=== PATIENT | female | born 1945 | race Caucasian/White ===

== ENCOUNTER 2017-02-13 06:28 | Day surgery (SDC) | payer MEDICARE ==
[~2017-02-13 06:28] MED LIST: LACTATED RINGERS 1,000 ML IV SCH
[2017-02-13 07:17] VITALS: TEMP 97.5
[2017-02-13 07:22] LABS: Glucose,Whole Blood 127 mg/dL (75-99)
[2017-02-13] MEDS ORDERED: LACTATED RINGERS 1,000 ML IV ONE (07:23)
[2017-02-13] MEDS ORDERED: PROPOFOL 10 MG/ML 20 ML VIAL IV ONE (07:29)
--- NOTE | 2017-02-13 07:57 | P.PCN ---
Date of Procedure: 02/13/17 Preoperative Diagnosis: Postoperative Diagnosis: Procedure(s) Performed: BRIEF HISTORY: Patient is a 71-year-old pleasant white female, scheduled for an elective colonoscopy as a part of screening for colorectal neoplasia. PROCEDURE PERFORMED: Colonoscopy. PREOPERATIVE DIAGNOSIS: Screening for colon cancer. IV sedation per Anesthesia. PROCEDURE: After informed consent was obtained, the patient, was brought into the endoscopy unit. IV sedation was administered by Anesthesia under continuous monitoring. Digital rectal examination was normal. Initially the Olympus CF- 160 flexible video colonoscope was then inserted in the rectum, gradually advanced into the cecum without any difficulty. Careful examination was performed as the scope was gradually being withdrawn. Ileocecal valve and the appendiceal orifice were visualized and appeared normal. Prep was excellent. Mucosa of the cecum, ascending colon, transverse colon, descending colon, sigmoid colon, and rectum appeared normal. Retroflexion was performed in the rectum and no lesions were seen. The patient tolerated the procedure well. IMPRESSION: Normal-appearing colon from rectum to cecum with no evidence of colorectal neoplasia. RECOMMENDATIONS: Findings of this examination were discussed with the patient as well as a family. She was advised to have a repeat screening colonoscopy in 10 years. Implants: Indications for Procedure: Operative Findings: Description of Procedure:
[2017-02-13 07:58] VITALS: RESP 16
[2017-02-13 08:11] VITALS: BP 147/66; PULSE 77
== END 2017-02-13 08:30 | disposition home or self-care (01) ==
LOC: ORWHC2ENDO 06:28
PROVIDERS: ATTEND Internal Medicine Gastroenterology
DX: Z12.11 Encounter for screening for malignant neoplasm of colon (principal); E11.9 Type 2 diabetes mellitus without complications; I69.951 Hemiplegia and hemiparesis following unspecified cerebrovascular disease affecting right dominant side; Z88.5 Allergy status to narcotic agent; Z91.040 Latex allergy status; Z79.82 Long term (current) use of aspirin; Z79.899 Other long term (current) drug therapy
CPT/HCPCS: J2704; G0121

== ENCOUNTER → 2017-02-27 | Outpatient (CLI) | payer MEDICARE ==
--- NOTE | 2017-02-27 14:14 | US ---
EXAMINATION TYPE: US thyroid st tissue head/neck DATE OF EXAM: 02/27/2017 COMPARISON: US 2015 CLINICAL HISTORY: E04.1 Thyroid nodule. GLAND SIZE: Right Lobe: 4.6 x 1.7 x 2.0 cm Overall Parenchyma: heterogenous Left Lobe: 3.6 x 1.7 x 1.3 cm Overall Parenchyma: heterogeneous Isthmus Thickness: 0.2 cm NODULES RIGHT: # of nodules measured on right: 3 1. 0.7 X 0.8 x 0.7 cm echogenic solid nodule at the upper pole with well-defined margins. This nod ule is wider than tall and shows intranodular vascularity. Prior size: 1.0 x 0.7 x 0.7 cm 2. 0.7 X 0.6 x 0.3 cm isoechoic mixed nodule at the mid pole with poorly defined margins. This nodul e is wider than tall and shows intranodular vascularity. Prior size: 0.5 x 0.6 x 0.4 cm 3. 0.6 X 0.4 x 0.4 cm hypoechoic solid nodule at the lower pole with poorly defined margins. This no dule is wide as is tall and shows no intranodular vascularity. Prior size: no prior seen LEFT: # of nodules measured on left: 2 largest of multiple nodules 1. 0.6 X 0.7 x 0.3 cm isoechoic mixed nodule at the upper pole with poorly defined margins. This n odule is wider than tall and shows no intranodular vascularity. This is stable in size. Prior size: 0.7 x 0.3 x 0.6 cm 2. 0.5 X 0.4 x 0.3 cm hypoechoic mixed nodule at the mid lateral pole with poorly defined margins. T his nodule is wider than tall and shows intranodular vascularity. Prior size: no prior ISTHMUS: # of nodules measured in the isthmus: 0 Bilateral neck scanned, no evidence of lymphadenopathy. IMPRESSION: Multiple bilateral subcentimeter nodules within the thyroid lobes. No nodules larger than 1 cm have e nlarged. Continued monitoring is recommended.
== END | disposition home or self-care (01) ==
LOC: RADUSWWP 13:09
PROVIDERS: ATTEND Family Medicine
DX: E04.2 Nontoxic multinodular goiter (principal)
CPT/HCPCS: 76536

== ENCOUNTER 2017-10-01 10:35 | Inpatient (IN) | payer MEDICARE ==
--- NOTE | 2017-10-01 11:04 | ED ---
General Adult HPI - General Chief complaint: Neuro Symptoms/Deficit Stated complaint: Poss CVA Time Seen by Provider: 10/01/17 10:52 Source: patient, RN notes reviewed, old records reviewed Mode of arrival: wheelchair Limitations: no limitations - History of Present Illness Initial comments: 72-year-old female history of CVA presenting with slurred speech and headache. Headache is right-sided. Her symptoms have been present for the past 3 days. It began on September 28. She states her speech comes and goes, sometimes it is so sometimes it is normal. Denies any focal weakness or paresthesias or numbness. Patient states she has had some difficulty swallowing which is chronic. Denies any chest pain or shortness of breath. Denies abdominal pain. Denies nausea vomiting or diarrhea. Denies fever or chills. - Related Data Home Medications Medication Instructions Recorded Confirmed Pravastatin Sodium 40 mg PO HS 02/17/16 10/01/17 Triamterene/Hydrochlorothiazid 1 cap PO Q48H 02/17/16 10/01/17 [Triamterene-Hctz 37.5-25 mg Cp] metFORMIN HCL 1,000 mg PO BID 02/17/16 10/01/17 Aspirin [Adult Low Dose Aspirin EC] 81 mg PO QAM 02/12/17 10/01/17 Cholecalciferol [Vitamin D3] 1 tab PO DAILY 02/12/17 10/01/17 Cyanocobalamin (Vitamin B-12) 1,000 mcg PO DAILY 02/12/17 10/01/17 [Vitamin B-12] Losartan [Cozaar] 50 mg PO BID 02/12/17 10/01/17 Folic Acid 1 mg PO DAILY 10/01/17 10/01/17 Multivitamins, Thera [Multivitamin 1 tab PO DAILY 10/01/17 10/01/17 (formulary)] Pantoprazole [Protonix] 40 mg PO HS 10/01/17 10/01/17 Thiamine [Vitamin B-1] 100 mg PO DAILY 10/01/17 10/01/17 Previous Rx's Medication Instructions Recorded Metoprolol Tartrate [Lopressor] 12.5 mg PO BID #60 tab 02/21/16 amLODIPine [Norvasc] 5 mg PO BID #60 tab 02/21/16 Allergies Allergy/AdvReac Type Severity Reaction Status Date / Time codeine Allergy Dyspnea, N Verified 10/01/17 11:00 & V latex Allergy Rash/Hives Verified 10/01/17 11:00 Review of Systems ROS Statement: Those systems with pertinent positive or pertinent negative responses have been documented in the HPI. ROS Other: All systems not noted in ROS Statement are negative. Past Medical History Past Medical History: CVA/TIA, Diabetes Mellitus, Hyperlipidemia, Hypertension Additional Past Medical History / Comment(s): 02/17/16 CVA (SHORT TERM MEMORY LOSS, RIGHT ARM IS WEAK, LEFT EYE VISION IMPROVING, RIGHT LEG WEAK). 2013: SEPSIS ( [facility])??NOT MRSA PER PATIENT. HX OF POLIO, RIGHT CLUB FOOT. History of Any Multi-Drug Resistant Organisms: None Reported Past Surgical History: Orthopedic Surgery, Tubal Ligation Additional Past Surgical History / Comment(s): JANUARY 2017 : ATYPICAL MOLE REMOVED ON MID BACK. LEFT KNEE REPLACEMENT. SEVERAL BREAST BX-NEG Past Anesthesia/Blood Transfusion Reactions: No Reported Reaction Past Psychological History: No Psychological Hx Reported Smoking Status: Former smoker Past Alcohol Use History: None Reported Past Drug Use History: None Reported - Past Family History Father Family Medical History: Coronary Artery Disease (CAD) Mother Family Medical History: Coronary Artery Disease (CAD) Sister(s) Family Medical History: Cancer, Renal Disease Additional Family Medical History / Comment(s): Bone cancer, General Exam Limitations: no limitations General appearance: alert, in no apparent distress Head exam: Present: atraumatic, normocephalic Eye exam: Present: normal appearance, PERRL, EOMI ENT exam: Present: normal exam Neck exam: Present: normal inspection. Absent: tenderness, meningismus Respiratory exam: Present: normal lung sounds bilaterally. Absent: respiratory distress, wheezes Cardiovascular Exam: Present: regular rate, normal rhythm GI/Abdominal exam: Present: soft. Absent: distended, tenderness Extremities exam: Present: normal inspection, normal capillary refill. Absent: pedal edema, calf tenderness Neurological exam: Present: alert, oriented X3, CN II-XII intact. Absent: motor sensory deficit Psychiatric exam: Present: normal affect, normal mood Skin exam: Present: warm, dry, intact. Absent: cyanosis, diaphoretic Course Vital Signs 10/01/17 10/01/17 10/01/17 10:37 12:16 13:59 Temperature 99.6 F Pulse Rate 88 80 80 Respiratory 18 17 17 Rate Blood Pressure 189/82 151/78 147/69 O2 Sat by Pulse 95 97 99 Oximetry EKG Findings - EKG Comments: EKG Findings:: EKG, normal sinus rhythm, ventricular rate 78, HI interval 162, QRS duration 96, QTC 446, no ST segment elevation or depression Medical Decision Making - Medical Decision Making 72-year-old female with slurred speech, this is resolved time my evaluation. NIH is 0. Head CT is obtained, is negative for acute intracranial process. Laboratory studies including CBC, CMP and troponin are negative. Chest x-ray negative for any acute thoracic process. Patient is loaded with aspirin. She will be admitted for further management of TIA. Carotid ultrasound and echo will be obtained. - Lab Data Result diagrams: 10/01/17 11:00 10/01/17 11:00 Lab Results 10/01/17 10/01/17 10/01/17 Range/Units 11:00 11:00 11:00 WBC 10.6 (3.8-10.6) k/uL RBC 4.96 (3.80-5.40) m/uL Hgb 13.7 (11.4-16.0) gm/dL Hct 41.8 (34.0-46.0) % MCV 84.2 (80.0-100.0) fL MCH 27.7 (25.0-35.0) pg MCHC 32.9 (31.0-37.0) g/dL RDW 13.2 (11.5-15.5) % Plt Count 287 (150-450) k/uL Neutrophils % 76 % Lymphocytes % 17 % Monocytes % 5 % Eosinophils % 1 % Basophils % 1 % Neutrophils # 8.1 H (1.3-7.7) k/uL Lymphocytes # 1.8 (1.0-4.8) k/uL Monocytes # 0.6 (0-1.0) k/uL Eosinophils # 0.1 (0-0.7) k/uL Basophils # 0.1 (0-0.2) k/uL PT (9.0-12.0) sec INR (<1.2) APTT (22.0-30.0) sec Sodium 139 (137-145) mmol/L Potassium 4.8 (3.5-5.1) mmol/L Chloride 99 (98-107) mmol/L Carbon Dioxide 28 (22-30) mmol/L Anion Gap 12 mmol/L BUN 18 H (7-17) mg/dL Creatinine 0.97 (0.52-1.04) mg/dL Est GFR (CKD-EPI)AfAm 69 (>60 ml/min/1.73 sqM) Est GFR (CKD-EPI)NonAf 60 (>60 ml/min/1.73 sqM) Glucose 147 H (74-99) mg/dL Calcium 9.8 (8.4-10.2) mg/dL Total Bilirubin 0.7 (0.2-1.3) mg/dL AST 11 L (14-36) U/L ALT 11 (9-52) U/L Alkaline Phosphatase 74 (38-126) U/L Total Creatine Kinase 22 L (30-135) U/L CK-MB (CK-2) 0.4 (0.0-2.4) ng/mL CK-MB (CK-2) Rel Index 1.8 Troponin I <0.012 (0.000-0.034) ng/mL Total Protein 7.1 (6.3-8.2) g/dL Albumin 3.7 (3.5-5.0) g/dL 10/01/17 Range/Units 11:00 WBC (3.8-10.6) k/uL RBC (3.80-5.40) m/uL Hgb (11.4-16.0) gm/dL Hct (34.0-46.0) % MCV (80.0-100.0) fL MCH (25.0-35.0) pg MCHC (31.0-37.0) g/dL RDW (11.5-15.5) % Plt Count (150-450) k/uL Neutrophils % % Lymphocytes % % Monocytes % % Eosinophils % % Basophils % % Neutrophils # (1.3-7.7) k/uL Lymphocytes # (1.0-4.8) k/uL Monocytes # (0-1.0) k/uL Eosinophils # (0-0.7) k/uL Basophils # (0-0.2) k/uL PT 9.8 (9.0-12.0) sec INR 1.0 (<1.2) APTT 23.1 (22.0-30.0) sec Sodium (137-145) mmol/L Potassium (3.5-5.1) mmol/L Chloride (98-107) mmol/L Carbon Dioxide (22-30) mmol/L Anion Gap mmol/L BUN (7-17) mg/dL Creatinine (0.52-1.04) mg/dL Est GFR (CKD-EPI)AfAm (>60 ml/min/1.73 sqM) Est GFR (CKD-EPI)NonAf (>60 ml/min/1.73 sqM) Glucose (74-99) mg/dL Calcium (8.4-10.2) mg/dL Total Bilirubin (0.2-1.3) mg/dL AST (14-36) U/L ALT (9-52) U/L Alkaline Phosphatase (38-126) U/L Total Creatine Kinase (30-135) U/L CK-MB (CK-2) (0.0-2.4) ng/mL CK-MB (CK-2) Rel Index Troponin I (0.000-0.034) ng/mL Total Protein (6.3-8.2) g/dL Albumin (3.5-5.0) g/dL Disposition Clinical Impression: Transient cerebral ischemia Disposition: ADMITTED IP TO THIS [facility] Condition: Stable Referrals: Vishal Ambrose MD [Primary Care Provider] - 1-2 days Decision to Admit Reason: Admit from EC Decision Date: 10/01/17 Decision Time: 14:05
[2017-10-01 11:25] LABS: Basophils # (A) 0.1 k/uL (0-0.2); Basophils % (A) 1 %; Eosinophils # (A) 0.1 k/uL (0-0.7); Eosinophils % (A) 1 %; HCT 41.8 % (34.0-46.0); HGB 13.7 gm/dL (11.4-16.0); Lymphocytes # (A) 1.8 k/uL (1.0-4.8); Lymphocytes % (A) 17 %; MCH 27.7 pg (25.0-35.0); MCHC 32.9 g/dL (31.0-37.0); MCV 84.2 fL (80.0-100.0); Mean Platelet Volume 7.8; Monocytes # (A) 0.6 k/uL (0-1.0); Monocytes % (A) 5 %; Neutrophils # (A) 8.1 k/uL (1.3-7.7); Neutrophils % (A) 76 %; Platelet Count 287 k/uL (150-450); RBC 4.96 m/uL (3.80-5.40); RDW 13.2 % (11.5-15.5); WBC 10.6 k/uL (3.8-10.6)
[2017-10-01 11:26] LABS: Partial Thromboplastin Time 23.1 sec (22.0-30.0); Prothrombin Time 9.8 sec (9.0-12.0)
--- NOTE | 2017-10-01 11:28 | CT ---
EXAMINATION TYPE: CT brain wo con DATE OF EXAM: 10/01/2017 COMPARISON: 02/17/2016 HISTORY: 72-year-old female neurologic deficits, complains of episodes of headache, blurry vision, an d slurred speech x3 days. TECHNIQUE: Examination was done in axial plane without intravenous contrast. Coronal and sagittal r econstructions performed. CT DLP: 999 mGycm Automated exposure control for dose reduction was used. FINDINGS: There is no evidence of acute intracranial hemorrhage, acute ischemic changes, mass, mass-effect, or extra-axial fluid collection. There is no effacement of cerebral sulci or basal subarachnoid cister ns. There is no hydrocephalus. There is no midline shift. Mccracken-white matter distinction is preserv ed. Paranasal sinuses and mastoid air cells are well pneumatized. Orbits and globes are intact. IMPRESSION: No acute intracranial abnormality seen.
--- NOTE | 2017-10-01 11:32 | XR ---
EXAMINATION TYPE: XR chest 2V DATE OF EXAM: 10/01/2017 COMPARISON: 02/17/2016 HISTORY: 72-year-old female slurred speech, confusion, altered mental status TECHNIQUE: Frontal and lateral views FINDINGS: Heart normal size. Mild elongation thoracic aorta. Mild interstitial prominence as a chronic appearan ce. Eventration anterior right hemidiaphragm. No consolidation or pleural effusion. Anterior bridging endplate spondylosis can be seen with DISH. IMPRESSION: Chronic changes without acute cardiopulmonary process.
[2017-10-01 11:36] LABS: Albumin 3.7 g/dL (3.5-5.0); Calcium 9.8 mg/dL (8.4-10.2); Potassium 4.8 mmol/L (3.5-5.1); Total Bilirubin 0.7 mg/dL (0.2-1.3); Total Protein 7.1 g/dL (6.3-8.2)
[2017-10-01 11:38] LABS: Creatine Kinase 22 U/L (30-135)
[2017-10-01 11:51] LABS: Creatine Kinase MB 0.4 ng/mL (0.0-2.4); Troponin I <0.012 ng/mL (0.000-0.034)
[2017-10-01] MEDS ORDERED: ASPIRIN 325 MG TAB PO STA (14:39)
[2017-10-01] MEDS: SODIUM CHLORIDE 0.9% 1,000 ML IV SCH (15:06)
[2017-10-01 16:37] LABS: Glucose,Whole Blood 107 mg/dL (75-99)
--- NOTE | 2017-10-01 19:56 | P.CNNES ---
History of Present Illness Consult date: 10/01/17 History of Present Illness: The patient is a 72-year-old right-handed white female who states she woke up with a headache on Thursday night. This was primarily right-sided. Headache continued for 2 days. She saw her primary care physician this morning and he suggested she be admitted. Headache is gone currently. She gives a history of right retinal hemorrhage. He has a history of stroke which left her with some left visual disturbance and right-sided weakness. Stroke stroke occurred in January 2016. She's been taking 1 baby aspirin since that time. She reports that over the past month she has been having episodes of slurred speech off and on. She denied any new weakness or numbness. She states her blood pressures are non-last few days. It went as high as a systolic of 200. He is taking Cozaar for hypertension. She is admitted to the hospital with possible TIA. She had a CT of the brain which was unremarkable. Review of Systems Constitutional: Denies chills, Denies fever Eyes: denies blurred vision, denies pain Ears, nose, mouth and throat: Denies headache, Denies sore throat Cardiovascular: Denies chest pain, Denies shortness of breath Respiratory: Reports as per HPI Gastrointestinal: Denies abdominal pain, Denies diarrhea, Denies nausea, Denies vomiting Musculoskeletal: Denies myalgias Neurological: Denies numbness, Denies weakness Psychiatric: Reports as per HPI Past Medical History Past Medical History: CVA/TIA, Diabetes Mellitus, Hyperlipidemia, Hypertension Additional Past Medical History / Comment(s): 02/17/16 CVA (SHORT TERM MEMORY LOSS, RIGHT ARM IS WEAK, LEFT EYE VISION IMPROVING, RIGHT LEG WEAK). 2013: SEPSIS ( [facility])??NOT MRSA PER PATIENT. HX OF POLIO, RIGHT CLUB FOOT. History of Any Multi-Drug Resistant Organisms: None Reported Past Surgical History: Orthopedic Surgery, Tubal Ligation Additional Past Surgical History / Comment(s): JANUARY 2017 : ATYPICAL MOLE REMOVED ON MID BACK. LEFT KNEE REPLACEMENT. SEVERAL BREAST BX-NEG Past Anesthesia/Blood Transfusion Reactions: No Reported Reaction Past Psychological History: No Psychological Hx Reported Smoking Status: Former smoker Past Alcohol Use History: None Reported Additional Past Alcohol Use History / Comment(s): QUIT 1976, [employer] Past Drug Use History: None Reported - Past Family History Father Family Medical History: Coronary Artery Disease (CAD) Mother Family Medical History: Coronary Artery Disease (CAD) Sister(s) Family Medical History: Cancer, Renal Disease Additional Family Medical History / Comment(s): Bone cancer, Medications and Allergies Home Medications Medication Instructions Recorded Confirmed Type Pravastatin Sodium 40 mg PO HS 02/17/16 10/01/17 History Triamterene/Hydrochlorothiazid 1 cap PO Q48H 02/17/16 10/01/17 History [Triamterene-Hctz 37.5-25 mg Cp] metFORMIN HCL 1,000 mg PO BID 02/17/16 10/01/17 History Metoprolol Tartrate [Lopressor] 12.5 mg PO BID #60 tab 02/21/16 10/01/17 Rx amLODIPine [Norvasc] 5 mg PO BID #60 tab 02/21/16 10/01/17 Rx Aspirin [Adult Low Dose Aspirin EC] 81 mg PO QAM 02/12/17 10/01/17 History Cholecalciferol [Vitamin D3] 1 tab PO DAILY 02/12/17 10/01/17 History Cyanocobalamin (Vitamin B-12) 1,000 mcg PO DAILY 02/12/17 10/01/17 History [Vitamin B-12] Losartan [Cozaar] 50 mg PO BID 02/12/17 10/01/17 History Folic Acid 1 mg PO DAILY 10/01/17 10/01/17 History Multivitamins, Thera [Multivitamin 1 tab PO DAILY 10/01/17 10/01/17 History (formulary)] Pantoprazole [Protonix] 40 mg PO HS 10/01/17 10/01/17 History Thiamine [Vitamin B-1] 100 mg PO DAILY 10/01/17 10/01/17 History Allergies Allergy/AdvReac Type Severity Reaction Status Date / Time codeine Allergy Dyspnea, N Verified 10/01/17 11:00 & V latex Allergy Rash/Hives Verified 10/01/17 11:00 Physical Examination - Vital Signs Vital Signs: Vital Signs Temp Pulse Pulse Pulse Resp BP BP 10/01/17 16:00 99.0 F 76 16 142/63 10/01/17 15:29 97.3 F L 10/01/17 15:04 77 17 116/59 10/01/17 13:59 80 17 147/69 10/01/17 12:16 80 17 151/78 10/01/17 10:37 99.6 F 88 18 189/82 Pulse Ox 10/01/17 16:00 93 L 10/01/17 15:29 10/01/17 15:04 10/01/17 13:59 99 10/01/17 12:16 97 10/01/17 10:37 95 Intake and Output 10/01/17 10/01/17 10/01/17 06:59 14:59 22:59 Intake Total 200 Balance 200 Intake: Oral 200 Other: Weight 95.708 kg - Constitutional General appearance: average body habitus - EENT EENT: PERRL, hearing intact, vision intact - Respiratory Respiratory: lungs clear - Cardiovascular Cardiovascular: regular rate, normal S1, normal S2 - Neurologic Mental status: She was awake alert and oriented chance of questions appropriately there is no a aphasia or dysarthria. Cranial nerve examination: PERRL, EOMI, VFF, V1/V2/V3 grossly intact, face symmetric, tongue midline Speech examination: intact Detailed motor examination: grossly full strength in all extremities Detailed sensory examination: intact - Psychiatric Psychiatric: mood/affect appropriate Results - Laboratory Findings CBC and BMP: 10/01/17 11:00 10/01/17 11:00 Abnormal Lab Findings: Abnormal Labs 10/01/17 10/01/17 10/01/17 11:00 11:00 11:00 Neutrophils # 8.1 H BUN 18 H Glucose 147 H POC Glucose (mg/dL) AST 11 L Total Creatine Kinase 22 L 10/01/17 16:35 Neutrophils # BUN Glucose POC Glucose (mg/dL) 107 H AST Total Creatine Kinase Assessment and Plan (1) Transient cerebral ischemia Current Visit: Yes Status: Acute Code(s): G45.9 - TRANSIENT CEREBRAL ISCHEMIC ATTACK, UNSPECIFIED SNOMED Code(s): 610458796 (2) Slurred speech Current Visit: Yes Status: Acute SNOMED Code(s): 824917195 (3) History of stroke Current Visit: Yes Status: Chronic SNOMED Code(s): 098489060 Plan: The patient is a 72-year-old woman with history of old stroke consisting of right-sided weakness and left eye visual disturbance. She presents to the hospital with right-sided headache. Her blood pressure has been elevated recently to the systolic range of 200. She feels fine currently and has no headache. Also gives a history of intermittent slurred speech over the past 1 month. She has been taking one baby aspirin daily for stroke prevention. She was admitted to the hospital with possible TIA. Recommend carotid ultrasound and echocardiogram. She has had a CT of the brain which was unremarkable. So recommend increase aspirin to 81 mg twice a day. 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 Recommend monitor blood pressure closely.
[2017-10-01] MEDS: amLODIPine 5 MG TAB PO SCH (20:30)
[2017-10-01] MEDS: LOSARTAN 50 MG TAB PO SCH (20:30)
[2017-10-01] MEDS: METOPROLOL TARTRATE 12.5 MG TAB PO SCH (20:30)
[2017-10-01] MEDS ORDERED: PANTOPRAZOLE 40 MG TABLET PO SCH (21:00)
[2017-10-01] MEDS ORDERED: PRAVASTATIN SODIUM 40 MG TAB PO SCH (21:00)
[2017-10-01 21:05] LABS: Glucose,Whole Blood 115 mg/dL (75-99)
[2017-10-01] MEDS ORDERED: RX INFO: IV CONTRAST WAS GIVEN 1 EACH MISC MISCELLANE PRN (21:39)
[2017-10-01] MEDS ORDERED: CALCIUM CARBONATE 500 MG CHEWABLE PO PRN (21:42)
[2017-10-01] MEDS ORDERED: MELATONIN 3 MG TABLET PO PRN (21:42)
[2017-10-01] MEDS ORDERED: ONDANSETRON 4 MG/2 ML VIAL IVP PRN (21:42)
[2017-10-01] MEDS ORDERED: NALOXONE 0.4 MG/ML 1 ML VIAL IV PRN ×2 (21:42→23:06)
[2017-10-01] MEDS ORDERED: LORazepam 0.5 MG TAB PO PRN (21:42)
[2017-10-01] MEDS ORDERED: ACETAMINOPHEN TAB 325 MG TAB PO PRN (21:42)
[2017-10-01] MEDS: ENOXAPARIN 40 MG/0.4 ML SYRINGE SQ SCH (22:18)
--- NOTE | 2017-10-02 00:01 | HP ---
HISTORY AND PHYSICAL DATE OF ADMISSION: 10/01/2017 PRESENTING COMPLAINT: Slurring of speech. HISTORY OF PRESENTING COMPLAINT: This is a very pleasant 72-year-old patient of Dr. Ambrose. Chronic stable medical conditions include diabetes, hypertension, hyperlipidemia, slight weakness to the right leg from polio. The patient also had a stroke in 2016 with some residual weakness in the right arm and patient has a right club foot. The patient has presented with episode of slurring of speech, also had some headache. 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 Sometimes toward the evening, she notices double vision. After chewing food, sometimes she started drooling and her jaw starts hurting and becomes weak and tired. The symptoms are much better in the morning. The patient denies any other focal symptoms otherwise. This has been coming on; hence, patient decided to come to the ER. REVIEW OF SYSTEMS: CONSTITUTIONAL: None. HEENT: None. RESPIRATORY: None. CARDIOVASCULAR: None. GASTROINTESTINAL: None. GENITOURINARY: None. MUSCULOSKELETAL: As above. DERMATOLOGICAL: None. HEMATOLOGIC: None. LYMPHATIC: None. PSYCHIATRY: None. NEUROLOGICAL: As above. PAST HISTORY: Diabetes, hypertension, hyperlipidemia, polio in the right leg, stroke with some right arm and slight right leg weakness 2016, right club foot. PAST SURGICAL HISTORY: Tubal ligation, left knee replacement. SOCIAL HISTORY: The patient stopped smoking in 1975, was a very light smoker. No alcohol. . 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 FAMILY HISTORY: Bone cancer and coronary artery disease. HOME MEDICATIONS: 1. Metformin 1000 mg b.i.d. 2. Norvasc 5 mg b.i.d. 3. Triamterene/hydrochlorothiazide 1 capsule q.48 hours. 4. Thiamine 100 mg a day. 5. Pravastatin 40 mg q.h.s. 6. Protonix 40 mg q.h.s. 7. Men's multivitamin 1 tablet p.o. daily. 8. Lopressor 12.5 p.o. b.i.d. 9. Cozaar 50 mg p.o. b.i.d. 10.Folic acid 1 mg p.o. daily. 11.Vitamin B12 1000 mcg p.o. daily. 12.Vitamin D3 1 tablet p.o. daily. 13.Aspirin 81 mg p.o. daily. ALLERGIES: CODEINE and LATEX. EXAMINATION: Temperature 97.8, pulse 78, respirations 16, blood pressure 160/72, pulse ox 98% on room air. GENERAL APPEARANCE: Well-built, BMI of 41.2, lying in bed, comfortable. EYES: Pupils equal. Conjunctivae normal. HEENT: External nose and ears normal. Oral cavity normal. NECK: JVD not raised. Mass not palpable. RESPIRATORY: Effort normal. Lungs are clear. CARDIOVASCULAR: First and second sounds normal. No edema. ABDOMEN: Soft, nontender. Liver and spleen not palpable. LYMPHATIC: No lymph nodes palpable in neck or axillae. PSYCHIATRY: Alert and oriented x3. Mood and affect normal. NEUROLOGICAL: Pupils equal. Cranial nerve grossly intact. Power in the right arm is 4/5. Right leg is possibly 4/5 and clubfoot is present. INVESTIGATIONS: White count 10.6, hemoglobin 13.7. Potassium 4.8, BUN 18, creatinine 0.97. Troponin I negative. CT scan of the brain: Nil acute. ASSESSMENT: 1. This is a patient who has actually had a prior stroke in 2015 with some residual right arm weakness. 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 This could be tested with a Tensilon test and also sending of acetylcholine receptor antibodies. 2. Diabetes mellitus type 2 on oral hypoglycemic. 3. Essential hypertension. 4. Hyperlipidemia. 5. Chronic right leg weakness from polio. 6. Right arm weakness from stroke in 2010. 7. Right clubfoot. 8. Morbid obesity, BMI 41.2. PLAN: Home medications are resumed. Neurology was consulted. I will send off acetylcholine receptor antibodies and also try to do the Tensilon test. Carotid Doppler, 2D echo will be done. The patient has also been put on aspirin. Patient is already on Pravachol. Care was discussed in detail with the patient. Questions were answered. MMODL / IJN: [id number] /
[2017-10-02 06:16] LABS: Glucose,Whole Blood 122 mg/dL (75-99)
[2017-10-02 06:47] LABS: Cholesterol 164 mg/dL (<200); HDL Cholesterol 42 mg/dL (40-60); LDL Cholesterol,Calculated 86 mg/dL (0-99); Triglycerides 178 mg/dL (<150)
[2017-10-02] MEDS ORDERED: metFORMIN 500 MG TAB PO SCH (07:30)
[2017-10-02 08:28] VITALS: RESP 18
[2017-10-02] MEDS: amLODIPine 5 MG TAB PO SCH (08:55)
[2017-10-02] MEDS: METOPROLOL TARTRATE 12.5 MG TAB PO SCH (08:55)
[2017-10-02] MEDS: LOSARTAN 50 MG TAB PO SCH (08:56)
[2017-10-02] MEDS: ENOXAPARIN 40 MG/0.4 ML SYRINGE SQ SCH (08:56)
[2017-10-02] MEDS ORDERED: CYANOCOBALAMIN 500 MCG TAB PO SCH (09:00)
[2017-10-02] MEDS ORDERED: ASPIRIN 325 MG TAB PO SCH (09:00)
[2017-10-02] MEDS ORDERED: NON-FORMULARY DRUG (Aspirin [Adult Low Dose Aspirin Ec] 81 MG) PO SCH (09:00)
--- NOTE | 2017-10-02 09:10 | CT ---
EXAMINATION TYPE: CT chest w con DATE OF EXAM: 10/02/2017 COMPARISON: Radiograph 10/01/2017 HISTORY: 72-year-old female assess for Thymoma TECHNIQUE: Contiguous axial scanning of the chest after the administration of 100 mL of Isovue 300. Coronal/sagittal reconstructions performed. CT DLP: 771mGycm. Automatic exposure control utilized for a dose reduction. FINDINGS: The heart is normal size without pericardial effusion. Aorta normal caliber with mild atelectatic arch calcifications and conventional arch vessel branching anatomy. Borderline to mildly enlarged caliber to the main right and left pulmonary arteries are 2.7 and 2.5 c m, respectively, suggesting underlying pulmonary arterial hypertension. No thoracic lymphadenopathy or anterior mediastinal mass. Evaluation of the lungs shows asymmetric elevation of the right hemidiaphragm and some minimal strand y left basilar atelectasis. No consolidation or pleural effusion. There is focal nodularity at the GE junction that could represent a collapsed hiatal hernia and less likely neoplasm, referred to axial image 45 Visualized upper abdomen shows a large heterogeneous nodule of the right adrenal gland measuring 4.0 cm. Bones: Bridging anterior endplate spondylosis mid to lower thoracic spine suggestive of DISH. Degener ative changes at both shoulders. No osseous destructive process. IMPRESSION: 1. No mediastinal lymphadenopathy or mediastinal mass to suggest thymoma. 2. Borderline to mildly enlarged caliber to the main right and left pulmonary arteries can be seen in the setting of pulmonary arterial hypertension. Further clinical correlation recommended. 3. A 4.0 cm mass of the right adrenal gland. Adrenal mass protocol CT can further characterize for po tential adrenal adenoma. 4. Focal nodularity of the GE junction suspected to represent mucosal redundancy or a collapsed hiata l hernia. Neoplasm considered less likely. Correlate with patient's symptoms as to the need for direc t visualization.
--- NOTE | 2017-10-02 09:16 | US ---
EXAMINATION TYPE: US carotid duplex BILAT DATE OF EXAM: 10/02/2017 COMPARISON: NONE CLINICAL HISTORY: Stenosis. TIA, h/o stroke EXAM MEASUREMENTS: RIGHT: Peak Systolic Velocity (PSV) cm/sec ----- Right CCA: 89.1 ----- Right ICA: 71.5 ----- Right ECA: 115.3 ICA/CCA ratio: 0.8 RIGHT: End Diastole cm/sec ----- Right CCA: 31.2 ----- Right ICA: 30.9 ----- Right ECA: 11.7 LEFT: Peak Systolic Velocity (PSV) cm/sec ----- Left CCA: 86.2 ----- Left ICA: 91.1 ----- Left ECA: 90.2 ICA/CCA ratio: 1.1 LEFT: End Diastole cm/sec ----- Left CCA: 21.3 ----- Left ICA: 91.1 ----- Left ECA: 90.2 VERTEBRALS (direction of flow): Right Vertebral: Antegrade Left Vertebral: Antegrade Rhythm: Normal Mild heterogenous plaque with no significant stenosis seen IMPRESSION: 1. Atheromatous plaquing without significant flow-limiting stenosis. Criteria for Assigning % of Stenosis / Diameter reduction (Estimation based on the indirect measurements of the internal carotid artery velocities (ICA PSV). 1. Normal (no stenosis)=ICA PSV < 125 cm/s: ratio < 2.0: ICA EDV<40 cm/s. 2. Less than 50% stenosis=ICA PSV < 125 cm/s: ratio < 2.0: ICA EDV<40 cm/s. 3. 50 to 69% stenosis=ICA PSV of 125 to 230 cm/s: ration 2.0 ? 4.0: ICA EDV 40-100 cm/s. 4. Greater than 70% stenosis to near occlusion= ICA PSV > 230 cm/s: ratio > 4.0: ICA EDV > 100 cm/s. 5. Near occlusion= ICA PSV velocities may be low or undetectable: variable ratio and ICA EDV. 6. Total occlusion=unable to detect flow.
--- NOTE | 2017-10-02 11:13 | ECHOF ---
Referral Reason:Thrombus MEASUREMENTS -------- HEIGHT: 152.4 cm WEIGHT: 95.7 kg BP: RVIDd: 2.6 cm (< 3.3) IVSd: 1.0 cm (0.6 - 1.1) LVIDd: 5.1 cm (3.9 - 5.3) LVPWd: 1.2 cm (0.6 - 1.1) IVSs: 1.6 cm LVIDs: 3.2 cm LVPWs: 1.5 cm LA Diam: 4.0 cm (2.7 - 3.8) LAESV Index (A-L): 30.34 ml/m Ao Diam: 2.8 cm (2.0 - 3.7) AV Cusp: 1.3 cm (1.5 - 2.6) LA Diam: 4.5 cm (2.7 - 3.8) EPSS: 0.1 cm MV E Eddi: 0.42 m/s MV DecT: 185 ms MV A Eddi: 0.65 m/s MV E/A Ratio: 0.65 RAP: 5.00 mmHg RVSP: 10.95 mmHg MV EF SLOPE: 97.05 mm/s (70 - 150) MV EXCURSION: 1.10 cm (> 18.000) FINDINGS -------- Sinus rhythm. This was a technically adequate study. LV size, wall thickness and systolic function are normal, with an EF greater than 55%. The left renetta tricular size is normal. The right ventricle is normal in size. The left atrial size is normal. LA is midly dilated 29-33ml/m2. The right atrial size is normal. There is mild aortic valve sclerosis. There is no evidence of aortic regurgitation. Mild mitral annular calcification present. No mitral regurgitation. Mild tricuspid regurgitation present. There is no evidence of pulmonary hypertension. The right v entricular systolic pressure, as measured by Doppler, is 10.95mmHg. There is no pulmonic regurgitation present. The aortic root size is normal. There is no pericardial effusion. CONCLUSIONS -------- 1. LV size, wall thickness and systolic function are normal, with an EF greater than 55%. 2. The left ventricular size is normal. 3. The right ventricle is normal in size. 4. LA is midly dilated 29-33ml/m2. 5. There is mild aortic valve sclerosis. 6. Mild mitral annular calcification present. 7. No mitral regurgitation. 8. There is no evidence of pulmonary hypertension. 9. The right ventricular systolic pressure, as measured by Doppler, is 10.95mmHg. 10. There is no pulmonic regurgitation present. 11. The aortic root size is normal. 12. There is no pericardial effusion. M[employer] OPERATOR: Kianna Keys RDCS
[2017-10-02] MEDS ORDERED: FOLIC ACID 1 MG TAB PO SCH (12:00)
[2017-10-02] MEDS ORDERED: MULTIVITAMINS, THERA 1 EACH TAB PO SCH (12:00)
[2017-10-02] MEDS ORDERED: THIAMINE 100 MG TAB PO SCH (12:00)
[2017-10-02 15:40] VITALS: BP 127/70; PULSE 76; TEMP 97
[2017-10-02] MEDS: SODIUM CHLORIDE 0.9% 1,000 ML IV SCH (15:43)
[2017-10-02 16:45] LABS: Glucose,Whole Blood 96 mg/dL (75-99)
--- NOTE | 2017-10-02 18:10 | P.PN ---
Subjective Progress Note Date: 10/02/17 The patient is a 72-year-old woman admitted to the hospital with right-sided headache and history of episodic slurred speech. He has a history of strok which left her with some right-sided weakness. She was admitted to the hospital with TIA. Patient has had a carotid ultrasound and echocardiogram which is unremarkable. We've increased her aspirin to 81 mg twice a day. She has had a CT of the brain which was unremarkable. The patient reports that she' s been feeling fine. She is back to her baseline. She is not complaining of any headache or focal weakness or visual changes. She expresses desire to go home. Objective - Vital Signs Vital signs: Vital Signs Temp 97.0 F L 10/02/17 15:39 Pulse 76 10/02/17 15:39 Resp 18 10/02/17 15:39 BP 127/70 10/02/17 15:39 Pulse Ox 92 L 10/02/17 15:39 Intake & Output 10/01/17 10/02/17 10/02/17 18:59 06:59 18:59 Intake Total 200 1000 340 Balance 200 1000 340 Weight 95.708 kg 93.6 kg Intake: Intake, IV Titration 1000 160 Amount Sodium Chloride 0.9% 1, 1000 160 000 ml @ 20 mls/hr IV . Q24H [place] Rx#:[id number] Oral 200 180 Other: # Voids 1 - Constitutional General appearance: Present: average body habitus - Respiratory Respiratory: bilateral: CTA - Cardiovascular Rhythm: regular - Neurologic Neurologic Comment(s): Mental status: She was awake alert and oriented. She answered questions appropriately. There is no aphasia or dysarthria. Cranial nerves II through XII grossly intact except motor examination revealed no focal weakness minimal right-sided weakness arm and leg Gait was normal - Labs CBC & Chem 7: 10/01/17 11:00 10/01/17 11:00 Labs: Abnormal Lab Results - Last 24 Hours (Table) 10/01/17 10/02/17 10/02/17 Range/Units 21:03 06:14 06:14 POC Glucose (mg/dL) 115 H 122 H (75-99) mg/dL Triglycerides 178 H (<150) mg/dL Assessment and Plan (1) Transient cerebral ischemia Current Visit: Yes Status: Acute Code(s): G45.9 - TRANSIENT CEREBRAL ISCHEMIC ATTACK, UNSPECIFIED SNOMED Code(s): 006380935 (2) Slurred speech Current Visit: Yes Status: Acute SNOMED Code(s): 218346333 (3) History of stroke Current Visit: Yes Status: Chronic SNOMED Code(s): 772801869 Plan: The patient is a 72-year-old woman admitted to the hospital with possible TIA. She has had a carotid ultrasound and echocardiogram which were unremarkable. Her symptom of right-sided headache is completely resolved. She has a history of old stroke with right-sided weakness and this is unchanged. We have advised increase of aspirin to 81 mg twice a day. She can follow-up outpatient in the neurology clinic.
--- NOTE | 2017-10-02 20:14 | DS ---
DISCHARGE SUMMARY DATE OF ADMISSION: 10/01/2017. DATE OF DISCHARGE: 10/02/2017 FINAL DIAGNOSES: 1. Possible transient ischemic attack. 2. Strong clinical suspicion of myasthenia gravis being worked up. 3. Diabetes mellitus type 2 on oral hypoglycemic. 4. Essential hypertension. 5. Hyperlipidemia. 6. Chronic right leg weakness from polio. 7. Right arm weakness from stroke in 2010. 8. Right club foot. 9. Morbid obesity, BMI 41.2. 10.4-cm right adrenal mass. HOSPITAL COURSE: This very pleasant lady presented with slurred speech. Symptoms have improved. Per Dr. Cerda, the patient had a TIA. CT scan did not show any significant findings. The patient's echocardiogram was unremarkable. So was the carotid Doppler. After more deep questioning, it is found that the patient's symptoms are much worse in the evening. She gets drooping of eyelids, double vision, jaw claudication. Sometimes the food falls out and also speech becomes slurred through end of her long speeches. Symptoms going on for quite some time. My clinical suspicion for myasthenia gravis is very high. I did send off acetylcholine receptor antibodies and did discuss this today with Dr. Donaldson and the patient in detail. She will follow up with Dr. Donaldson as an outpatient. Additionally, a CT scan of the chest did show a 4-cm mass of the right adrenal gland. I am having the patient follow up with Dr. Quiros from Endocrinology for further workup. EXAMINATION: Lungs are clear. CARDIOVASCULAR: First and second sounds normal. DISCUSSION AND DISCHARGE PLANNING: More than 35 minutes. DISCHARGE MEDICATIONS: 1. Pravachol 40 mg q.h.s. 2. Triamterene/hydrochlorothiazide 37.5/25, 1 capsule p.o. q.48 hours. 3. Metformin 1000 mg b.i.d. 4. Lopressor 12.5 p.o. b.i.d. 5. Norvasc 5 mg p.o. b.i.d. 6. Vitamin D3 1 tablet p.o. daily. 7. Vitamin B12 1000 mcg p.o. daily. 8. Cozaar 50 mg p.o. b.i.d. 9. Folic acid 1 mg p.o. daily. 10.Multivitamin tab p.o. daily. 11.Protonix 40 mg q.h.s. 12.Thiamine 100 mg p.o. daily. 13.Aspirin 81 mg p.o. b.i.d. Follow up with Dr. Quiros in 1 week for adrenal mass on the right side, 4 cm; Dr. Riddhi Donaldson in 10 days for workup for myasthenia gravis, Dr. Vishal Ambrose in 3 days. MMODL / IJN: [id number] /
[2017-10-03] MEDS ORDERED: TRIAMTERENE-HCTZ 37.5-25MG 1 EACH CAP PO SCH (09:00)
== END 2017-10-02 18:13 | disposition home or self-care (01) | DRG 69 ==
LOC: EC 10:35 → 6SEL 14:39
PROVIDERS: ADMIT Hospitalist; ATTEND Hospitalist
DX: G45.9 Transient cerebral ischemic attack, unspecified (principal); E66.01 Morbid (severe) obesity due to excess calories; I69.351 Hemiplegia and hemiparesis following cerebral infarction affecting right dominant side; G70.00 Myasthenia gravis without (acute) exacerbation; Z68.41 Body mass index [BMI] 40.0-44.9, adult; E11.9 Type 2 diabetes mellitus without complications; Z79.84 Long term (current) use of oral hypoglycemic drugs; E27.9 Disorder of adrenal gland, unspecified; E78.5 Hyperlipidemia, unspecified; I10 Essential (primary) hypertension; Q66.89 Other specified congenital deformities of feet; Z79.82 Long term (current) use of aspirin; Z79.899 Other long term (current) drug therapy; Z80.8 Family history of malignant neoplasm of other organs or systems; Z82.49 Family history of ischemic heart disease and other diseases of the circulatory system; R53.1 Weakness; B91 Sequelae of poliomyelitis; Z96.652 Presence of left artificial knee joint; Z87.891 Personal history of nicotine dependence; Z88.5 Allergy status to narcotic agent; Z91.040 Latex allergy status; I69.311 Memory deficit following cerebral infarction; I69.398 Other sequelae of cerebral infarction; H53.8 Other visual disturbances
CPT/HCPCS: 36415; 70450; 71046; 71260; 80053; 80061; 82550; 82553; 83519; 84484; 85025; 85610; 85730; 93005; 93306; 93880; 99285

== ENCOUNTER → 2018-06-07 | Outpatient (CLI) | payer MEDICARE ==
--- NOTE | 2018-06-08 10:31 | MM ---
Reason for exam: screening (asymptomatic). Last mammogram was performed 2 years ago. History: Patient is postmenopausal. Family history of breast cancer in mother at age 91, breast cancer in paternal aunt, breast cancer in sister at age 53, and breast cancer in maternal aunt. Benign left US cyst aspiration of the left breast, June 02, 2006. Benign stereotactic core biopsy of the left breast, March 01, 1999. Physical Findings: A clinical breast exam by your physician is recommended on an annual basis and results should be correlated with mammographic findings. MG 3D Screening Mammo W/Cad Bilateral CC and MLO view(s) were taken. Prior study comparison: June 12, 2016, bilateral MG 3d screening mammo w/cad. June 11, 2015, bilateral MG screening mammo w CAD. The breast tissue is heterogeneously dense. This may lower the sensitivity of mammography. There are benign appearing round vascular calcifications bilaterally. Previous mammotome biopsy in the left breast. There is no discrete abnormality. ASSESSMENT: Benign, BI-RAD 2 RECOMMENDATION: Routine screening mammogram of both breasts in 1 year.
== END | disposition home or self-care (01) ==
LOC: RADMAMWWP 10:36
PROVIDERS: ATTEND Family Medicine
DX: Z12.31 Encounter for screening mammogram for malignant neoplasm of breast (principal)
CPT/HCPCS: 77063; 77067

== ENCOUNTER → 2020-01-03 | Outpatient (CLI) | payer MEDICARE | END | disposition home or self-care (01) | LOC: CPPFTMAIN 08:26 | PROVIDERS: ATTEND Psychiatry & Neurology Neurology | DX: G70.00 Myasthenia gravis without (acute) exacerbation (principal) | CPT/HCPCS: 94060; 94726; 94729 ==

== ENCOUNTER → 2020-01-11 | Outpatient (CLI) | payer MEDICARE ==
[2020-01-11 13:36] LABS: Basophils # (A) 0.1 k/uL (0-0.2); Basophils % (A) 1 %; Eosinophils # (A) 0.3 k/uL (0-0.7); Eosinophils % (A) 2 %; HCT 42.2 % (34.0-46.0); HGB 13.1 gm/dL (11.4-16.0); Lymphocytes # (A) 3.2 k/uL (1.0-4.8); Lymphocytes % (A) 22 %; MCHC 30.9 g/dL (31.0-37.0); MCV 84.2 fL (80.0-100.0); Monocytes # (A) 0.8 k/uL (0-1.0); Monocytes % (A) 5 %; Neutrophils # (A) 10.1 k/uL (1.3-7.7); Neutrophils % (A) 69 %; Platelet Count 320 k/uL (150-450); RBC 5.02 m/uL (3.80-5.40); RDW 14.2 % (11.5-15.5); WBC 14.7 k/uL (3.8-10.6)
[2020-01-11 19:50] LABS: African American GFR (CKD) 52.3 (60.0-200.0); Albumin 3.9 g/dL (3.80-4.90); Albumin/Globulin Ratio 1.5 (1.60-3.17); Anion Gap 7.8 mmol/L (4.00-12.00); BUN/Creat Ratio 17.5 Ratio (12.00-20.00); Calcium 9.6 mg/dL (8.7-10.3); Carbon Dioxide 28.2 mmol/L (21.6-31.8); Globulin 2.6 g/dL (1.6-3.3); Non-African American GFR(CKD) 45.1 (60.0-200.0); Potassium 4.7 mmol/L (3.5-5.5); Total Bilirubin 0.5 mg/dL (0.3-1.2); Total Protein 6.5 g/dL (6.2-8.2)
[2020-01-11 19:59] LABS: T4, Free (Free Thyroxine) 1.4 ng/dL (0.80-1.80)
== END | disposition home or self-care (01) ==
LOC: LABWHC1 12:35
PROVIDERS: ATTEND Psychiatry & Neurology Neurology
DX: R53.1 Weakness (principal); Z51.81 Encounter for therapeutic drug level monitoring
CPT/HCPCS: 36415; 80053; 82607; 84439; 84443; 85025

== ENCOUNTER 2020-07-17 10:53 | Observation (INO) | payer MEDICARE ==
[2020-07-17 11:09] VITALS: RESP 18
[2020-07-17] MEDS ORDERED: KETOROLAC 15 MG/ML 1 ML VIAL IVP STA (11:26)
--- NOTE | 2020-07-17 11:46 | ED ---
General Adult HPI - General Chief complaint: Extremity Problem,Nontraumatic Stated complaint: swollen lt arm, sent by physician Time Seen by Provider: 07/17/20 11:10 Source: patient, RN notes reviewed Mode of arrival: wheelchair Limitations: no limitations - History of Present Illness Initial comments: 75 -year-old female presents to the emergency room for left hand and wrist pain. Patient reports that this started last night. States that she noticed that in her antecubital fossa that she had some "pimples". States she noticed that the anterior aspect of her wrist was red. Patient states she has a lot of pain and swelling in the thumb and difficulty moving the thumb. Patient saw her neurologist today and he was concerned about her hand and arm. States it looked swollen. Concern for blood clot or infection. Denies fevers at home.Patient has no other complaints at this time including shortness of breath, chest pain, abdominal pain, nausea or vomiting, headache, or visual changes. - Related Data Home Medications Medication Instructions Recorded Confirmed Pravastatin Sodium 40 mg PO HS 02/17/16 07/17/20 metFORMIN HCL 1,000 mg PO BID 02/17/16 07/17/20 Cholecalciferol [Vitamin D3 (25 1 tab PO HS 02/12/17 07/17/20 Mcg = 1000 Iu)] Losartan [Cozaar] 50 mg PO DAILY 02/12/17 07/17/20 Folic Acid 1 mg PO DAILY 10/01/17 07/17/20 Pantoprazole [Protonix] 40 mg PO BID 10/01/17 07/17/20 Canagliflozin [Invokana] 100 mg PO DAILY 07/17/20 07/17/20 Metoprolol Tartrate [Lopressor] 12.5 mg PO BID 07/17/20 07/17/20 Pyridostigmine [Mestinon] 30 mg PO QID 07/17/20 07/17/20 Previous Rx's Medication Instructions Recorded amLODIPine [Norvasc] 5 mg PO BID #60 tab 02/21/16 Allergies Allergy/AdvReac Type Severity Reaction Status Date / Time codeine Allergy Dyspnea, N Verified 07/17/20 11:55 & V latex Allergy Rash/Hives Verified 07/17/20 11:55 Review of Systems ROS Statement: Those systems with pertinent positive or pertinent negative responses have been documented in the HPI. ROS Other: All systems not noted in ROS Statement are negative. Past Medical History Past Medical History: CVA/TIA, Diabetes Mellitus, Hyperlipidemia, Hypertension Additional Past Medical History / Comment(s): 02/17/16 CVA (SHORT TERM MEMORY LOSS, RIGHT ARM IS WEAK, LEFT EYE VISION IMPROVING, RIGHT LEG WEAK). 2013:SEPSIS ( [facility])??NOT MRSA PER PATIENT. HX OF POLIO, RIGHT CLUB FOOT. History of Any Multi-Drug Resistant Organisms: None Reported Past Surgical History: Orthopedic Surgery, Tubal Ligation Additional Past Surgical History / Comment(s): JANUARY 2017 : ATYPICAL MOLE REMOVED ON MID BACK. LEFT KNEE REPLACEMENT. SEVERAL BREAST BX-NEG Past Anesthesia/Blood Transfusion Reactions: No Reported Reaction Past Psychological History: No Psychological Hx Reported Smoking Status: Former smoker Past Alcohol Use History: None Reported Past Drug Use History: None Reported - Past Family History Father Family Medical History: Coronary Artery Disease (CAD) Mother Family Medical History: Coronary Artery Disease (CAD) Sister(s) Family Medical History: Cancer, Renal Disease Additional Family Medical History / Comment(s): Bone cancer, General Exam Limitations: no limitations General appearance: alert Head exam: Present: atraumatic, normocephalic Eye exam: Present: normal appearance, PERRL, EOMI. Absent: scleral icterus ENT exam: Present: normal exam, mucous membranes moist Neck exam: Present: normal inspection, full ROM Respiratory exam: Present: normal lung sounds bilaterally. Absent: wheezes Cardiovascular Exam: Present: regular rate, normal rhythm, normal heart sounds GI/Abdominal exam: Present: soft, normal bowel sounds. Absent: distended, tenderness, guarding, rebound, rigid Extremities exam: Present: tenderness (Denies tenderness to the left thumb. Some slight tenderness to the volar forearm of the left arm.), normal capillary refill (Capillary refill less than 2 seconds, radial pulse 2+.), other (Patient does have edema of the thenar eminence of the left thumb. There is some slight erythema noted of the proximal aspect of the forearm with papules. There is streaking erythema of the volar wrist. + Tiburcio). Absent: full ROM (Venous pain with supination of the left forearm. Unable to move the left thumb secondary to pain.) Course Vital Signs 07/17/20 11:06 Temperature 99 F Pulse Rate 94 Respiratory 18 Rate Blood Pressure 146/81 O2 Sat by Pulse 94 L Oximetry Procedures - Sepsis Sepsis Focused Exam #1 Time Sepsis Criteria Met: 12:00 Sepsis Focused Exam Date: 07/17/20 Sepsis Focused Exam Time: 12:20 Sepsis Focused Exam Complete: Yes Vital Signs & RN Notes Reviewed: Yes Capillary Refill: < 2 Seconds: Fingers, Toes Peripheral Pulses: Normal: Radial (R) Skin Color: Normal for Patient Respiratory Exam: normal lung sounds Cardiovascular Exam: regular rate, normal rhythm Medical Decision Making - Medical Decision Making Patient has a temperature of 99 with a pulse rate 94. She technically does not meet surgical criteria however white count was found to be 15.4 and lactic acid 4.2. Patient was given 30 mL/kg of normal saline based on her ideal body weight of 45.3. Started on Zosyn and Vanco. Dr. Goodwin evaluated patient. Ultrasound of the left upper extremity shows no evident DVT. Forearm reveals mild osteoarthritic changes present in the wrist. Dr. Goodwin spoke with Dr. Belle who does accept this admission. Orthopedics will be consulted. - Lab Data Result diagrams: 07/17/20 11:32 07/17/20 11:32 Lab Results 07/17/20 07/17/20 07/17/20 Range/Units 11:32 11:32 11:32 WBC 15.4 H (3.8-10.6) k/uL RBC 5.11 (3.80-5.40) m/uL Hgb 13.2 (11.4-16.0) gm/dL Hct 41.8 (34.0-46.0) % MCV 81.7 (80.0-100.0) fL MCH 25.9 (25.0-35.0) pg MCHC 31.7 (31.0-37.0) g/dL RDW 14.4 (11.5-15.5) % Plt Count 329 (150-450) k/uL MPV 7.7 Neutrophils % 84 % Lymphocytes % 8 % Monocytes % 5 % Eosinophils % 2 % Basophils % 1 % Neutrophils # 12.9 H (1.3-7.7) k/uL Lymphocytes # 1.3 (1.0-4.8) k/uL Monocytes # 0.7 (0-1.0) k/uL Eosinophils # 0.3 (0-0.7) k/uL Basophils # 0.2 (0-0.2) k/uL Sodium 138 (137-145) mmol/L Potassium 4.1 (3.5-5.1) mmol/L Chloride 104 (98-107) mmol/L Carbon Dioxide 24 (22-30) mmol/L Anion Gap 10 mmol/L BUN 23 H (7-17) mg/dL Creatinine 0.96 (0.52-1.04) mg/dL Est GFR (CKD-EPI)AfAm 68 (>60 ml/min/1.73 sqM) Est GFR (CKD-EPI)NonAf 59 (>60 ml/min/1.73 sqM) Glucose 177 H (74-99) mg/dL Plasma Lactic Acid Vick 4.2 H* (0.7-2.0) mmol/L Calcium 9.7 (8.4-10.2) mg/dL Total Bilirubin 0.7 (0.2-1.3) mg/dL AST 16 (14-36) U/L ALT 14 (4-34) U/L Alkaline Phosphatase 74 (38-126) U/L C-Reactive Protein <5.0 (<10.0) mg/L Total Protein 7.8 (6.3-8.2) g/dL Albumin 4.2 (3.5-5.0) g/dL Disposition Clinical Impression: Arm pain, Lactic acidosis, Leukocytosis, Tenosynovitis Disposition: ADMITTED IP TO THIS HOSP Is patient prescribed a controlled substance at d/c from ED?: No Referrals: Vishal Ambrose MD [Primary Care Provider] - 1-2 days Time of Disposition: 12:25
[2020-07-17 11:49] LABS: Basophils # (A) 0.2 k/uL (0-0.2); Basophils % (A) 1 %; Eosinophils # (A) 0.3 k/uL (0-0.7); Eosinophils % (A) 2 %; HCT 41.8 % (34.0-46.0); HGB 13.2 gm/dL (11.4-16.0); Lymphocytes # (A) 1.3 k/uL (1.0-4.8); Lymphocytes % (A) 8 %; MCH 25.9 pg (25.0-35.0); MCHC 31.7 g/dL (31.0-37.0); MCV 81.7 fL (80.0-100.0); Mean Platelet Volume 7.7; Monocytes # (A) 0.7 k/uL (0-1.0); Monocytes % (A) 5 %; Neutrophils # (A) 12.9 k/uL (1.3-7.7); Neutrophils % (A) 84 %; Platelet Count 329 k/uL (150-450); RBC 5.11 m/uL (3.80-5.40); RDW 14.4 % (11.5-15.5); WBC 15.4 k/uL (3.8-10.6)
[2020-07-17 12:03] LABS: Potassium 4.1 mmol/L (3.5-5.1)
--- NOTE | 2020-07-17 12:03 | XR ---
Left forearm HISTORY: Pain and swelling 2 views left forearm There is some remodeling at the radiocarpal joint with joint space loss. Bone mineralization appears reduced. Alignment is maintained. No fracture or dislocation. 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 Suspect decreased bone mineralizati on.
[2020-07-17] MEDS ORDERED: cefTRIAXone IN SWFI 1,000 MG/10 ML SYRINGE IVP STA (12:05)
[2020-07-17] MEDS ORDERED: SODIUM CHLORIDE 0.9% 1,000 ML IV STA (12:05)
[2020-07-17] MEDS ORDERED: SODIUM CHLORIDE 0.9% 500 ML 500 ML IV STA (12:05)
[2020-07-17 12:06] LABS: ALT 14 U/L (4-34); AST 16 U/L (14-36); African American GFR (CKD) 68 (>60 ml/min/1.73 sqM); Albumin 4.2 g/dL (3.5-5.0); Alkaline Phosphatase 74 U/L (38-126); Anion Gap 10 mmol/L; Blood Urea Nitrogen 23 mg/dL (7-17); C Reactive Protein <5.0 mg/L (<10.0); Calcium 9.7 mg/dL (8.4-10.2); Carbon Dioxide 24 mmol/L (22-30); Chloride 104 mmol/L (98-107); Glucose 177 mg/dL (74-99); Non-African American GFR(CKD) 59 (>60 ml/min/1.73 sqM); Sodium 138 mmol/L (137-145); Total Bilirubin 0.7 mg/dL (0.2-1.3); Total Protein 7.8 g/dL (6.3-8.2)
--- NOTE | 2020-07-17 12:15 | US ---
EXAMINATION TYPE: US venous doppler duplex UE LT DATE OF EXAM: 07/17/2020 COMPARISON: NONE CLINICAL HISTORY: pain. Pt states left lower arm swelling, pt has not had any recent IV or trauma to the left arm SIDE PERFORMED: Left Grayscale, color Doppler, spectral Doppler imaging performed of the deep veins of the left upper extr emity. The shortness portions of the left internal jugular vein, subclavian vein, the left axillary vein, ba silic vein, left brachial veins, left radial and ulnar veins compress normally. Color flow is noted t hroughout central portions of the left upper extremity deep veins, basilic vein. Normal vascular wave forms identified. Left Arm: Negative for DVT IMPRESSION: No evident deep venous thrombosis in the visualized portions of the left upper extremity deep veins
[2020-07-17] MEDS ORDERED: PIPERACILLIN-TAZOBACTAM 3.375 GM in SODIUM CHLORIDE 0.9% 100 ML IVPB STA (12:19)
[2020-07-17] MEDS ORDERED: HYDROmorphone 0.5 MG/0.5 ML SYRINGE IVP PRN (12:38)
[2020-07-17] MEDS ORDERED: ONDANSETRON 4 MG/2 ML VIAL IVP PRN (12:38)
[2020-07-17] MEDS ORDERED: NALOXONE 0.4 MG/ML 1 ML VIAL IV PRN (12:38)
[2020-07-17] MEDS ORDERED: KETOROLAC 15 MG/ML 1 ML VIAL IVP PRN ×2 (12:38→12:40)
[2020-07-17] MEDS: SODIUM CHLORIDE 0.9% 1,000 ML IV SCH (12:44)
[2020-07-17] MEDS: PYRIDOSTIGMINE 60 MG TAB PO SCH ×3 (14:34→21:32)
[2020-07-17] MEDS ORDERED: MELATONIN 3 MG TABLET PO PRN (15:43)
[2020-07-17] MEDS ORDERED: HYDROcodone/APAP 5-325MG 1 EACH TAB PO PRN (15:43)
[2020-07-17 17:20] LABS: Glucose,Whole Blood 151 mg/dL (75-99)
[2020-07-17] MEDS ORDERED: metFORMIN 500 MG TAB PO SCH (17:30)
[2020-07-17] MEDS: INSULIN ASPART (NovoLOG) 100 UNIT/ML VIAL SQ SCH ×2 (17:46→20:44)
[2020-07-17] MEDS: PANTOPRAZOLE 40 MG TABLET PO SCH (17:46)
--- NOTE | 2020-07-17 17:56 | P.HPIM ---
History of Present Illness H&P Date: 07/17/20 Chief Complaint: left hand pain and swelling Patient is a 75 yo CF with a hx of DM 2 on oral therapy, Myasthenia gravis on myridostigmine, HTN, and GERD who came to the ER at the direction of Dr. Carranza due to swelling, pain, and redness of her left upper extremity. She developed these symptoms the day prior to admission. On arrival to the emergency department her vital signs were within normal limits. Blood work demonstrated WBC 15.4, Lactic acid 4.2, BUN 23, and glucose 177. Left upper extremity doppler was negative for signs of DVT, X-ray of left forearm showed mild arthritis changed in the left wrist. She was given a dose of zosyn in the emergency department. She was placed in observation for further monitoring. Patient seen and examined at bedside. She reports that yesterday she started to notice pain and swelling in her left forearm. She was unable to move her left thumb due to pain. Overnight her pain and swelling increased. She also developed warmth of that forearm and redness at the base of her thumb. She noted several pinpoint areas of redness in her left anticubital fossa. She notes that in 2010 she had an episode of septicemia with unknown root cause resulting in 12 week of IV antibiotics. She denies any recent injury to the left forearm. She is not having any fevers or chills at home. No riders. She has chronic fatigue secondary to her myasthenia gravis. She also has chronic shortness of breath secondary to her myasthenia. She has intermittent diarrhea which is unchanged. She has intermittent nausea which is unchanged. She has no other acute concerns. She reports that her diabetes is well controlled with her last hemoglobin A1c of 7.6 Review of Systems Pertinent positives and negatives as discussed in HPI, a complete review of systems was performed and all other systems are negative. 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/some urinary frequency, L eye bleed behind retina-vision has improved, NIDDM type II, neuropathy bilateral legs/feet, myasthenia gravis, R adrenal gland mass being monitored, 2010 sepsis, osteoporosis History of Any Multi-Drug Resistant Organisms: None Reported Past Surgical History: Joint Replacement, Orthopedic Surgery, Tonsillectomy, Tubal Ligation Additional Past Surgical History / Comment(s): L total knee arthroplasty, L knee I&D with polyethylene exchange d/t infection, R foot tendon surgery as a 4 year old child d/t polio, cyst removed from neck, lesion removed from lip, cyst r emoved from vaginal wall, mole removed from back, L breast biopsy/has clip, R breast I&D, EGD, colonoscopies, Past Anesthesia/Blood Transfusion Reactions: No Reported Reaction Smoking Status: Former smoker Past Alcohol Use History: None Reported Past Drug Use History: None Reported Additional History: No assistive devices - Past Family History Father Family Medical History: Coronary Artery Disease (CAD) Mother Family Medical History: Cancer, Coronary Artery Disease (CAD), Respiratory Disorder Additional Family Medical History / Comment(s): Uterine cancer Sister(s) Family Medical History: Cancer, Renal Disease Additional Family Medical History / Comment(s): Bone cancer, Medications and Allergies Home Medications Medication Instructions Recorded Confirmed Type Pravastatin Sodium 40 mg PO HS 02/17/16 07/17/20 History metFORMIN HCL 1,000 mg PO BID 02/17/16 07/17/20 History amLODIPine [Norvasc] 5 mg PO BID #60 tab 02/21/16 07/17/20 Rx Cholecalciferol [Vitamin D3 (25 1 tab PO HS 02/12/17 07/17/20 History Mcg = 1000 Iu)] Losartan [Cozaar] 50 mg PO DAILY 02/12/17 07/17/20 History Folic Acid 1 mg PO DAILY 10/01/17 07/17/20 History Pantoprazole [Protonix] 40 mg PO BID 10/01/17 07/17/20 History Canagliflozin [Invokana] 100 mg PO DAILY 07/17/20 07/17/20 History Metoprolol Tartrate [Lopressor] 12.5 mg PO BID 07/17/20 07/17/20 History Pyridostigmine [Mestinon] 30 mg PO QID 07/17/20 07/17/20 History Allergies Allergy/AdvReac Type Severity Reaction Status Date / Time codeine Allergy Dyspnea, N Verified 07/17/20 11:55 & V latex Allergy Rash/Hives Verified 07/17/20 11:55 Physical Exam Osteopathic Statement: *. No significant issues noted on an osteopathic structural exam other than those noted in the History and Physical/Consult. Vitals: Vital Signs Temp Pulse Pulse Resp BP BP Pulse Ox 07/17/20 14:50 98.6 F 82 18 161/85 97 07/17/20 13:09 99.1 F 85 18 165/86 99 07/17/20 11:06 99 F 94 18 146/81 94 L Intake and Output 07/17/20 07/17/20 07/17/20 06:59 14:59 22:59 Other: Weight 97.069 kg 97.069 kg General: ill appearing, no distress, appears at stated age Derm: redness of the anatomical snuff box left hand tracking up arm along venous tract with warmth and mild swelling, warm, dry, no left axillary lym phadenopathy Head: atraumatic, normocephalic, symmetric Eyes: EOMI, no lid lag, anicteric sclera, pupils equal round reactive to light ENT: Nose and ears atraumatic, no thrush, no pharyngeal erythema Neck: No thyromegaly, no cervical lymphadenopathy, trachea midline, supple Mouth: no lip lesion, mucus membranes moist Cardiovascular: S1S2 reg, no murmur, positive posterior tibial pulse bilateral, trace edema right lower extremity , capillary refill less than 2 seconds Lungs: Decreased bs bilateral, no ronchi, no rales, no wheeze, no accessory muscle use Abdominal: soft, nontender to palpation, no guarding, no appreciable organomegaly, normal bowel sounds Ext: no gross muscle atrophy, muscle strength muscle strength 5 out of 5 in all 4 extremities, no contractures, unable to bring thumb to 5th digit due to pain, she is able to approximate to digits 2,3, and 4. Neuro: CN II-XI grossly intact, light touch intact all 4 extremities, finger to nose within normal limits, Psych: Alert, oriented, appropriate affect Results CBC & Chem 7: 07/17/20 11:32 07/17/20 11:32 Labs: Abnormal Lab Results - Last 24 Hours (Table) 07/17/20 07/17/20 07/17/20 Range/Units 11:32 11:32 11:32 WBC 15.4 H (3.8-10.6) k/uL Neutrophils # 12.9 H (1.3-7.7) k/uL BUN 23 H (7-17) mg/dL Glucose 177 H (74-99) mg/dL Plasma Lactic Acid Vick 4.2 H* (0.7-2.0) mmol/L 07/17/20 Range/Units 14:17 WBC (3.8-10.6) k/uL Neutrophils # (1.3-7.7) k/uL BUN (7-17) mg/dL Glucose (74-99) mg/dL Plasma Lactic Acid Vick 2.3 H* (0.7-2.0) mmol/L Thrombosis Risk Factor Assmnt - DVT/VTE Prophylaxis DVT/VTE Prophylaxis: Mechanical Prophylaxis ordered - Choose All That Apply Any of the Below Risk Factors Present?: Yes Each Factor Represents 1 point: Obesity (BMI >25) Other Risk Factors: Yes Each Risk Factor Represents 2 Points: Age 61-74 years Other congenital or acquired thrombophilia - If yes, enter type in comment: No Thrombosis Risk Factor Assessment Total Risk Factor Score: 3 Thrombosis Risk Factor Assessment Level: Moderate Risk Assessment and Plan Assessment: Flexor tenosynovitis (infectious vs inflammatory) vs cellulits of the left snuff box - unasyn started - pain control - ortho consult - blood cultures pending - monitor fatigue closely lactic acidosis without the criteria of sepsis - IVF - Follow lactic acid levels, possible increased levels at baseline with mysthenia DM 2 - hold orals - SSI - Last A1C 07/10/20 7.2 - follow BS Myasthenia Gravis - Continue with pyridostigamine - careful monitoring HTN - controlled - contnued with lopressor, cozaar, and norvasc - follow BP Obesity with BMI 41.8 - structured outpatient weight loss Chronic: HLD GERD 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 Surrogate decision-maker: CODE STATUS: full, see advanced directives for further recs DVT prophylaxis: SCDs Discussed with: patient, nursing Anticipated discharge date: in AM Anticipated discharge place: home A total of 65 minutes was spent on the care of this complex patient more than 50% of the time was spent in counseling and care coordination.
[2020-07-17] MEDS ORDERED: PIPERACILLIN-TAZOBACTAM 3.375 GM in SODIUM CHLORIDE 0.9% 100 ML IVPB SCH (20:00)
[2020-07-17 20:14] LABS: Glucose,Whole Blood 167 mg/dL (75-99)
[2020-07-17] MEDS: AMPICILLIN-SULBACTAM 3 GM in SODIUM CHLORIDE 0.9% 100 ML IVPB SCH (20:44)
[2020-07-17] MEDS: amLODIPine 5 MG TAB PO SCH (20:44)
[2020-07-17] MEDS: METOPROLOL TARTRATE 12.5 MG TAB PO SCH (20:45)
[2020-07-17] MEDS ORDERED: CHOLECALCIFEROL 25 MCG (1000 IU) TABLET PO SCH (21:00)
[2020-07-17] MEDS ORDERED: PRAVASTATIN SODIUM 40 MG TAB PO SCH (21:00)
[2020-07-17] MEDS ORDERED: NON FORMULARY DRUG (Cholecalciferol 1,000 UNIT Tab) PO SCH (21:00)
[2020-07-17] MEDS: ACETAMINOPHEN TAB 325 MG TAB PO PRN (21:39)
[2020-07-18] MEDS: SODIUM CHLORIDE 0.9% 1,000 ML IV SCH ×2 (01:37→07:42)
[2020-07-18] MEDS: AMPICILLIN-SULBACTAM 3 GM in SODIUM CHLORIDE 0.9% 100 ML IVPB SCH ×2 (03:16→11:10)
[2020-07-18 05:28] VITALS: BP 117/69; PULSE 81; TEMP 98.1
[2020-07-18 06:41] LABS: HCT 35.5 % (34.0-46.0); HGB 11.5 gm/dL (11.4-16.0); Hypochromasia Slight; MCH 27.1 pg (25.0-35.0); MCHC 32.3 g/dL (31.0-37.0); MCV 83.7 fL (80.0-100.0); Mean Platelet Volume 7.6; Platelet Count 231 k/uL (150-450); RBC 4.24 m/uL (3.80-5.40); RDW 14.3 % (11.5-15.5); WBC 10.6 k/uL (3.8-10.6)
[2020-07-18 07:26] LABS: Glucose,Whole Blood 145 mg/dL (75-99)
[2020-07-18] MEDS: ACETAMINOPHEN TAB 325 MG TAB PO PRN (07:40)
[2020-07-18] MEDS: amLODIPine 5 MG TAB PO SCH (07:41)
[2020-07-18] MEDS: METOPROLOL TARTRATE 12.5 MG TAB PO SCH (07:41)
[2020-07-18] MEDS: PYRIDOSTIGMINE 60 MG TAB PO SCH (07:41)
[2020-07-18] MEDS: PANTOPRAZOLE 40 MG TABLET PO SCH (07:41)
[2020-07-18] MEDS: INSULIN ASPART (NovoLOG) 100 UNIT/ML VIAL SQ SCH ×2 (07:42→12:18)
[2020-07-18] MEDS ORDERED: LOSARTAN 50 MG TAB PO SCH (09:00)
[2020-07-18] MEDS ORDERED: FOLIC ACID 1 MG TAB PO SCH (09:00)
--- NOTE | 2020-07-18 09:46 | P.CNOR ---
History of Present Illness - [facility] Consult date: 07/18/20 Consult reason: other History of present illness: patient is a pleasant 75 year old female seen at bedside this morning in consultation for her left forearm and wrist pain. Presented yesterday to the emergency departme with left forearm/wrist pain and swelling. she denies having trauma or injury. She states the pain and swelling was restricting her movement and ability to use her left wrist and hand. She denies being scratched or bitten by an animal. She was admitted and started on IV antibiotics. She feels she is at least 75% improved this morning. She has no numbness, tingling, fever or chills. She has no new complaints. Review of Systems All systems: negative Constitutional: Denies chills, Denies fever Eyes: denies blurred vision, denies pain Ears, nose, mouth and throat: Denies headache, Denies sore throat Cardiovascular: Denies chest pain, Denies shortness of breath Respiratory: Denies cough Gastrointestinal: Denies abdominal pain, Denies diarrhea, Denies nausea, Denies vomiting Genitourinary: Denies dysuria, Denies hematuria Musculoskeletal: Denies myalgias Integumentary: Denies pruritus, Denies rash Neurological: Denies numbness, Denies weakness Psychiatric: Denies anxiety, Denies depression Endocrine: Denies fatigue, Denies weight change 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/some urinary frequency, L eye bleed behind retina-vision has improved, NIDDM type II, neuropathy bilateral legs/feet, myasthenia gravis, R adrenal gland mass being monitored, 2010 sepsis, osteoporosis History of Any Multi-Drug Resistant Organisms: None Reported Past Surgical History: Joint Replacement, Orthopedic Surgery, Tonsillectomy, Tubal Ligation Additional Past Surgical History / Comment(s): L total knee arthroplasty, L knee I&D with polyethylene exchange d/t infection, R foot tendon surgery as a 4 year old child d/t polio, cyst removed from neck, lesion removed from lip, cyst removed from vaginal wall, mole removed from back, L breast biopsy/has clip, R breast I&D, EGD, colonoscopies, Past Anesthesia/Blood Transfusion Reactions: No Reported Reaction Smoking Status: Former smoker Past Alcohol Use History: None Reported Past Drug Use History: None Reported - Past Family History Father Family Medical History: Coronary Artery Disease (CAD) Mother Family Medical History: Cancer, Coronary Artery Disease (CAD), Respiratory Disorder Additional Family Medical History / Comment(s): Uterine cancer Sister(s) Family Medical History: Cancer, Renal Disease Additional Family Medical History / Comment(s): Bone cancer, Medications and Allergies Home Medications Medication Instructions Recorded Confirmed Type Pravastatin Sodium 40 mg PO HS 02/17/16 07/17/20 History metFORMIN HCL 1,000 mg PO BID 02/17/16 07/17/20 History amLODIPine [Norvasc] 5 mg PO BID #60 tab 02/21/16 07/17/20 Rx Cholecalciferol [Vitamin D3 (25 1 tab PO HS 02/12/17 07/17/20 History Mcg = 1000 Iu)] Losartan [Cozaar] 50 mg PO DAILY 02/12/17 07/17/20 History Folic Acid 1 mg PO DAILY 10/01/17 07/17/20 History Pantoprazole [Protonix] 40 mg PO BID 10/01/17 07/17/20 History Canagliflozin [Invokana] 100 mg PO DAILY 07/17/20 07/17/20 History Metoprolol Tartrate [Lopressor] 12.5 mg PO BID 07/17/20 07/17/20 History Pyridostigmine [Mestinon] 30 mg PO QID 07/17/20 07/17/20 History Allergies Allergy/AdvReac Type Severity Reaction Status Date / Time codeine Allergy Dyspnea, N Verified 07/17/20 11:55 & V latex Allergy Rash/Hives Verified 07/17/20 11:55 Physical Examination On exam, skin is intact.There are no wounds, erythema or echymoses. There is minimal swelling about the forearm, wrist and hand. The arm and hand are not hot to touch. There is no focal fluid collection. Normal flexion cascade. She has minimal pain with full active wrist flexion and extension. There is an intact EPL, FPL, extensor indicis, hand intrinsics and the FDP to the small finger. Intact radial, median and ulnar nerve sensations as well as 2+ radial pulse and brisk capillary refill distally. Results - Labs Labs: Abnormal Lab Results - Last 24 Hours (Table) 07/17/20 07/17/20 07/17/20 Range/Units 11:32 11:32 11:32 WBC 15.4 H (3.8-10.6) k/uL Neutrophils # 12.9 H (1.3-7.7) k/uL BUN 23 H (7-17) mg/dL Glucose 177 H (74-99) mg/dL POC Glucose (mg/dL) (75-99) mg/dL Plasma Lactic Acid Vick 4.2 H* (0.7-2.0) mmol/L 07/17/20 07/17/20 07/17/20 Range/Units 14:17 17:17 17:29 WBC (3.8-10.6) k/uL Neutrophils # (1.3-7.7) k/uL BUN (7-17) mg/dL Glucose (74-99) mg/dL POC Glucose (mg/dL) 151 H (75-99) mg/dL Plasma Lactic Acid Vick 2.3 H* 2.2 H* (0.7-2.0) mmol/L 07/17/20 07/18/20 Range/Units 20:12 07:25 WBC (3.8-10.6) k/uL Neutrophils # (1.3-7.7) k/uL BUN (7-17) mg/dL Glucose (74-99) mg/dL POC Glucose (mg/dL) 167 H 145 H (75-99) mg/dL Plasma Lactic Acid Vick (0.7-2.0) mmol/L H & H 07/17/20 07/18/20 Range/Units 11:32 05:18 Hgb 13.2 11.5 (11.4-16.0) gm/dL Hct 41.8 35.5 (34.0-46.0) % Result Diagrams: 07/18/20 05:18 07/17/20 11:32 - Diagnostic results Wrist/Hand x-ray: report reviewed, image reviewed Assessment and Plan (1) Tenosynovitis Narrative/Plan: There are no plans for immediate surgical intervention. She has greatly improved. Recommend continue conservative care including NSAIDs, rest, elevation and antibiotics. She may D/C from orthopedic standpoint and follow up as an outpatient. Thank you Current Visit: Yes Status: Acute Priority: Medium Code(s): M65.9 - SYNOVITIS AND TENOSYNOVITIS, UNSPECIFIED SNOMED Code(s): 01898223 Time with Patient: Less than 30
[2020-07-18 10:36] LABS: African American GFR (CKD) 57.7 (60.0-200.0); BUN/Creat Ratio 19.09 Ratio (12.00-20.00); Calcium 8.7 mg/dL (8.7-10.3); Non-African American GFR(CKD) 49.8 (60.0-200.0); Potassium 4.2 mmol/L (3.5-5.5)
[2020-07-18 11:54] LABS: Glucose,Whole Blood 121 mg/dL (75-99)
--- NOTE | 2020-07-19 15:11 | P.DS ---
Providers Date of admission: 07/17/20 12:55 Expected date of discharge: 07/18/20 Attending physician: Frank Beltrán Consults: 07/17/20 12:42 Consult Physician Routine Consulting Provider: Mandeep Monk Consult Reason/Comments: tenosynovitis Do you want consulting provider notified?: Yes Primary care physician: Vishal Ambrose MD Hospital Course: Chief Complaint: left hand pain and swelling Hospital course Patient is a 75 yo CF with a hx of DM 2 on oral therapy, Myasthenia gravis on myridostigmine, HTN, and GERD who came to the ER at the direction of Dr. Carranza due to swelling, pain, and redness of her left upper extremity. She developed these symptoms the day prior to admission. On arrival to the emergency department her vital signs were within normal limits. Blood work demonstrated WBC 15.4, Lactic acid 4.2, BUN 23, and glucose 177. Left upper extremity doppler was negative for signs of DVT, X-ray of left forearm showed mild arthritis ch anged in the left wrist. She was given a dose of zosyn in the emergency department. She was placed in observation for further monitoring. She reports that yesterday she started to notice pain and swelling in her left forearm. She was unable to move her left thumb due to pain. Overnight her pain and swelling increased. She also developed warmth of that forearm and redness at the base of her thumb. She noted several pinpoint areas of redness in her left anticubital fossa. She notes that in 2010 she had an episode of septicemia with unknown root cause resulting in 12 week of IV antibiotics. She denies any recent injury to the left forearm. She is not having any fevers or chills at home. No rigors. She has chronic fatigue secondary to her myasthenia gravis. She also has chronic shortness of breath secondary to her myasthenia. She has intermittent diarrhea which is unchanged. She has intermittent nausea which is unchanged. She has no other acute concerns. Diagnosis with acute flexor tenosynovitis possibly cellulitis of the left snuff box. Treated with IV IV Unasyn. Also lactic acidosis with no sepsis. Today-doing much better. Pain swelling greatly improved. Movement is improved. No fever no chills. Consultation: [facility]. [facility] On examination: VITAL SIGNS: 98.1, 81, 18, 117/69, 95% room air GENERAL APPEARANCE: Sitting up to chair, comfortable HEENT: Normal external appearance of nose and ear. Oral cavity normal EYES: Pupils equal. Conjunctiva normal. NECK: JVD not raised. Mass not palpable. RESPIRATORY: Respiratory effort normal. Lungs clear to auscultation. CARDIOVASCULAR: First and second sounds normal. No edema. ABDOMEN: Soft. Liver and spleen not palpable. No tenderness. No mass palpable. PSYCHIATRY: Alert and oriented x3. Mood and affect normal. MUSCULAR skeletal: Slight swelling tenderness around the left thumb area of the metacarpal pharyngeal joint. Slight limitation of movement. Investigation: White count 10.6 hemoglobin 11.5 potassium 4.2 creatinine 1.1 CRP less than 5 Venous Doppler left lower him-negative for DVT X-ray left forearm-mild OA changes present in the wrist. Assessment: -Acute flexor tenosynovitis with cellulitis of the left snuff box area. -Diabetes mellitus type 2 -GERD -Essential hypertension -Hyperlipidemia -Primary osteoarthritis -Poorly as a child but chronic left leg to be weakness in the left clubfoot -Peripheral neuropathy from diabetes -Myasthenia gravis -Right adrenal gland mass that is being monitored -Osteoporosis Disposition: Home Patient Condition at Discharge: Stable Plan - Discharge Summary Discharge Rx Participant: No New Discharge Prescriptions: New Cephalexin [Keflex] 500 mg PO Q6HR 1 Days #20 cap Naproxen 250 mg PO BID #10 tablet Acetaminophen Tab [Tylenol] 650 mg PO Q6HR PRN tab PRN Reason: Mild Pain Or Fever > 100.5 Continue metFORMIN HCL 1,000 mg PO BID Pravastatin Sodium 40 mg PO HS amLODIPine [Norvasc] 5 mg PO BID #60 tab Losartan [Cozaar] 50 mg PO DAILY Cholecalciferol [Vitamin D3 (25 Mcg = 1000 Iu)] 1 tab PO HS Folic Acid 1 mg PO DAILY Pantoprazole [Protonix] 40 mg PO BID Metoprolol Tartrate [Lopressor] 12.5 mg PO BID Canagliflozin [Invokana] 100 mg PO DAILY Pyridostigmine [Mestinon] 30 mg PO QID Discharge Medication List Pravastatin Sodium 40 mg PO HS 02/17/16 [History] metFORMIN HCL 1,000 mg PO BID 02/17/16 [History] amLODIPine [Norvasc] 5 mg PO BID #60 tab 02/21/16 [Rx] Cholecalciferol [Vitamin D3 (25 Mcg = 1000 Iu)] 1 tab PO HS 02/12/17 [History] Losartan [Cozaar] 50 mg PO DAILY 02/12/17 [History] Folic Acid 1 mg PO DAILY 10/01/17 [History] Pantoprazole [Protonix] 40 mg PO BID 10/01/17 [History] Canagliflozin [Invokana] 100 mg PO DAILY 07/17/20 [History] Metoprolol Tartrate [Lopressor] 12.5 mg PO BID 07/17/20 [History] Pyridostigmine [Mestinon] 30 mg PO QID 07/17/20 [History] Acetaminophen Tab [Tylenol] 650 mg PO Q6HR PRN tab 07/18/20 [Rx] Cephalexin [Keflex] 500 mg PO Q6HR 1 Days #20 cap 07/18/20 [Rx] Naproxen 250 mg PO BID #10 tablet 07/18/20 [Rx] Follow up Appointment(s)/Referral(s): Vishal Ambrose MD [Primary Care Provider] - 1-2 days Discharge Disposition: HOME SELF-CARE
== END 2020-07-18 12:18 | disposition home or self-care (01) ==
LOC: EC 10:53 → 6NMEDSUR 12:55
PROVIDERS: ADMIT Hospitalist; ATTEND Hospitalist
DX: M65.832 Other synovitis and tenosynovitis, left forearm (principal); L03.114 Cellulitis of left upper limb; E87.2 Acidosis; M19.032 Primary osteoarthritis, left wrist; E11.42 Type 2 diabetes mellitus with diabetic polyneuropathy; I10 Essential (primary) hypertension; M79.89 Other specified soft tissue disorders; E78.5 Hyperlipidemia, unspecified; G70.00 Myasthenia gravis without (acute) exacerbation; E27.8 Other specified disorders of adrenal gland; M81.0 Age-related osteoporosis without current pathological fracture; I69.311 Memory deficit following cerebral infarction; Q66.89 Other specified congenital deformities of feet; K21.9 Gastro-esophageal reflux disease without esophagitis; I69.331 Monoplegia of upper limb following cerebral infarction affecting right dominant side; E66.9 Obesity, unspecified; G14 Postpolio syndrome; Z79.84 Long term (current) use of oral hypoglycemic drugs; Z88.5 Allergy status to narcotic agent; Z91.040 Latex allergy status; Z86.69 Personal history of other diseases of the nervous system and sense organs; Z86.19 Personal history of other infectious and parasitic diseases; Z98.51 Tubal ligation status; Z98.890 Other specified postprocedural states; Z96.652 Presence of left artificial knee joint; Z87.891 Personal history of nicotine dependence; Z79.899 Other long term (current) drug therapy; Z68.41 Body mass index [BMI] 40.0-44.9, adult; Z82.49 Family history of ischemic heart disease and other diseases of the circulatory system; Z80.8 Family history of malignant neoplasm of other organs or systems; Z80.49 Family history of malignant neoplasm of other genital organs; Z84.1 Family history of disorders of kidney and ureter
CPT/HCPCS: 96361; 96366; 96367; 96365; 96375; 99285; 36415; 80053; 80048; 83605; 85025; 85027; 86140; 87040; 73090; 93971; G0378 ×2; J2543; J0295 ×2; J1885

== ENCOUNTER → 2020-10-22 | Outpatient (CLI) | payer MEDICARE ==
[2020-10-22 11:19] LABS: Appearance,Urine Clear (Clear); Bilirubin,Urine Negative (Negative); Blood,Urine Negative (Negative); Color,Urine Light Yellow; Glucose,Urine (UA) 4+ (Negative); Ketones,Urine Negative (Negative); Leukocyte Esterase,Urine Trace (Negative); Mucus,Urine Rare /hpf; Nitrite,Urine Negative (Negative); Protein,Urine Negative (Negative); Specific Gravity,Urine 1.014 (1.001-1.035); Squamous Epithelial Cell,Urine 1 /hpf (0-4); Urobilinogen,Urine <2.0 mg/dL (<2.0); WBC,Urine 5 /hpf (0-5)
[2020-10-22 14:58] LABS: African American GFR (CKD) 51.9 (60.0-200.0); Albumin/Globulin Ratio 1.48 (1.60-3.17); Anion Gap 6.8 mmol/L (4.00-12.00); BUN/Creat Ratio 24.17 Ratio (12.00-20.00); Calcium 9.8 mg/dL (8.7-10.3); Carbon Dioxide 29.2 mmol/L (21.6-31.8); Globulin 2.7 g/dL (1.6-3.3); Magnesium 1.8 mg/dL (1.5-2.4); Non-African American GFR(CKD) 44.8 (60.0-200.0); Phosphorus 4.5 mg/dL (2.4-5.1); Potassium 5.2 mmol/L (3.5-5.5); Total Bilirubin 0.5 mg/dL (0.2-1.2); Total Protein 6.7 g/dL (6.2-8.2); Uric Acid 6.4 mg/dL (2.9-7.7)
[2020-10-22 15:24] LABS: Basophils # (A) 0.09 X 10*3/uL (0.00-0.10); Basophils % (A) 0.7 %; Eosinophils # (A) 0.29 X 10*3/uL (0.04-0.35); Eosinophils % (A) 2.2 %; HCT 42.6 % (37.2-46.3); HGB 12.6 g/dL (12.0-15.0); Lymphocytes # (A) 2.27 X 10*3/uL (0.90-5.00); Lymphocytes % (A) 17.4 %; MCH 25.6 pg (27.0-32.0); MCHC 29.6 g/dL (32.0-37.0); MCV 86.6 fL (80.0-97.0); Mean Platelet Volume 11.2 fL (9.5-12.2); Monocytes # (A) 0.99 X 10*3/uL (0.20-1.00); Monocytes % (A) 7.6 %; Neutrophils # (A) 9.39 X 10*3/uL (1.80-7.70); Neutrophils % (A) 71.7 %; Platelet Count 382 X 10*3/uL (140-440); RBC 4.92 X 10*6/uL (4.10-5.20); RDW 15.9 % (11.5-14.5); WBC 13.08 X 10*3/uL (4.50-10.00)
== END | disposition home or self-care (01) ==
LOC: LABWHC1 09:20
PROVIDERS: ATTEND Family Medicine
DX: N18.2 Chronic kidney disease, stage 2 (mild) (principal)
CPT/HCPCS: 36415; 80053; 81001; 82306; 83735; 83970; 84100; 84550; 85025

== ENCOUNTER → 2021-01-23 | Outpatient (CLI) | payer MEDICARE ==
[2021-01-23 11:43] LABS: Basophils # (A) 0.09 X 10*3/uL (0.00-0.10); Basophils % (A) 0.8 %; Eosinophils # (A) 0.37 X 10*3/uL (0.04-0.35); Eosinophils % (A) 3.2 %; HCT 43.5 % (37.2-46.3); Lymphocytes # (A) 2.93 X 10*3/uL (0.90-5.00); Lymphocytes % (A) 25.2 %; MCH 25.7 pg (27.0-32.0); MCHC 29.9 g/dL (32.0-37.0); MCV 86.1 fL (80.0-97.0); Mean Platelet Volume 12.1 fL (9.5-12.2); Monocytes % (A) 10.3 %; Neutrophils # (A) 7.01 X 10*3/uL (1.80-7.70); Neutrophils % (A) 60.1 %; Platelet Count 284 X 10*3/uL (140-440); RBC 5.05 X 10*6/uL (4.10-5.20); RDW 15.6 % (11.5-14.5); WBC 11.65 X 10*3/uL (4.50-10.00)
[2021-01-23 20:23] LABS: African American GFR (CKD) 51.9 (60.0-200.0); Albumin 3.5 g/dL (3.80-4.90); Albumin/Globulin Ratio 1.17 (1.60-3.17); Anion Gap 10.1 mmol/L (4.00-12.00); BUN/Creat Ratio 24.17 Ratio (12.00-20.00); Calcium 8.8 mg/dL (8.7-10.3); Carbon Dioxide 22.9 mmol/L (21.6-31.8); Non-African American GFR(CKD) 44.8 (60.0-200.0); Potassium 4.4 mmol/L (3.5-5.5); Total Bilirubin 0.5 mg/dL (0.3-1.2); Total Protein 6.5 g/dL (6.2-8.2)
== END | disposition home or self-care (01) ==
LOC: LABWHC1 07:39
PROVIDERS: ATTEND Psychiatry & Neurology Neurology
DX: D64.9 Anemia, unspecified (principal); R06.02 Shortness of breath; E87.1 Hypo-osmolality and hyponatremia; Z79.899 Other long term (current) drug therapy
CPT/HCPCS: 36415; 80053; 85025

== ENCOUNTER → 2022-03-11 | Outpatient (CLI) | payer MEDICARE ==
--- NOTE | 2022-03-12 15:11 | MM ---
Reason for Exam: Screening (asymptomatic). Last mammogram was performed 3 year(s) and 9 month(s) ago. Patient History: Menarche at age 12. First Full-Term at age 19. Postmenopausal. 06/02/2006, Benign Cyst Aspiration on the left side. 03/01/1999, Benign Stereotactic Core Biopsy on the left side. Paternal aunt had breast cancer, age 67. Maternal aunt (mayur) had breast cancer, age 56. Sister had breast cancer, age 53. Mother had breast cancer, age 91. Risk Values: Nettie 5 year model risk: 10.7%. NCI Lifetime model risk: 22.8%. Prior Study Comparison: 06/11/2015 Bilateral Screening Mammogram, [facility]. 06/12/2016 Bilateral Screening Mammogram, [facility]. 06/07/2018 Bilateral Screening Mammogram, [facility]. Tissue Density: The breast tissue is almost entirely fat. Findings: Analyzed By CAD. There is no suspicious group of microcalcifications or new suspicious mass in either breast. Overall Assessment: Negative, BI-RAD 1 Management: Screening Mammogram of both breasts in 1 year. A clinical breast exam by your physician is recommended on an annual basis and results should be correlated with mammographic findings. Electronically signed and approved by: Itz Carlos DO
== END | disposition home or self-care (01) ==
LOC: RADMAMWWP 07:27
PROVIDERS: ATTEND Family Medicine
DX: Z12.31 Encounter for screening mammogram for malignant neoplasm of breast (principal); Z78.0 Asymptomatic menopausal state; Z80.3 Family history of malignant neoplasm of breast
CPT/HCPCS: 77063; 77067

== ENCOUNTER → 2022-10-29 | Outpatient (CLI) | payer MEDICARE | END | disposition home or self-care (01) | LOC: LABWHC1 08:48 | PROVIDERS: ATTEND Psychiatry & Neurology Neurology | DX: G70.00 Myasthenia gravis without (acute) exacerbation (principal); E53.8 Deficiency of other specified B group vitamins; R13.10 Dysphagia, unspecified | CPT/HCPCS: 36415; 82607; 83519; 84207; 86255; 86256 ==

== ENCOUNTER → 2023-06-04 | Outpatient (CLI) | payer MEDICARE ==
--- NOTE | 2023-06-07 18:29 | MM ---
Reason for Exam: Screening (asymptomatic). Last mammogram was performed 1 year(s) and 3 month(s) ago. Patient History: Menarche at age 12. First Full-Term at age 19. Postmenopausal. 06/02/2006, Benign Cyst Aspiration on the left side. 03/01/1999, Benign Stereotactic Core Biopsy on the left side. Paternal aunt had breast cancer, age 67. Maternal aunt (mayur) had breast cancer, age 56. Sister had breast cancer, age 53. Mother had breast cancer, age 91. Risk Values: Esther 5 year model risk: 10.7%. NCI Lifetime model risk: 21.5%. Prior Study Comparison: 06/12/2016 Bilateral Screening Mammogram, [facility]. 06/07/2018 Bilateral Screening Mammogram, [facility]. 03/11/2022 Bilateral MG 3D screening mammo w/cad, [facility]. Tissue Density: There are scattered fibroglandular densities. Findings: Analyzed By CAD. Benign vascular calcifications on both sides. Microclip left breast from prior biopsy. There is no suspicious group of microcalcifications or new suspicious mass in either breast. Overall Assessment: Benign, BI-RAD 2 Management: Screening Mammogram of both breasts in 1 year. SEE NOTE BELOW IN REGARDS TO PATIENT'S INCREASED 5 YEAR ESTHER SCORE AND INCREASED LIFETIME RISK SCORE. Patient should continue monthly self-breast exams. A clinical breast exam by your physician is recommended on an annual basis. This exam should not preclude additional follow-up of suspicious palpable abnormalities. Note on Esther scores and lifetime risk: 1. A Esther score greater than 3% is considered moderate risk. If this is the case, consider specialist referral to assess eligibility for a risk reducing agent. 2. If overall lifetime risk for the development of breast cancer is 20% or higher, the patient may qualify for future screening with alternating mammogram and breast MRI. Electronically signed and approved by: Rachelle Yancey M.D. Radiologist
== END | disposition home or self-care (01) ==
LOC: RADMAMWWP 11:05
PROVIDERS: ATTEND Family Medicine
DX: Z12.31 Encounter for screening mammogram for malignant neoplasm of breast (principal); Z80.3 Family history of malignant neoplasm of breast; Z78.0 Asymptomatic menopausal state
CPT/HCPCS: 77063; 77067

== ENCOUNTER → 2023-06-11 | Outpatient (CLI) | payer MEDICARE ==
--- NOTE | 2023-06-12 08:56 | CT ---
EXAMINATION TYPE: CT abdomen wo/w con DATE OF EXAM: 06/11/2023 COMPARISON: CT chest 10/02/2017 HISTORY: Mass on RT adrenal gland. CT DLP: 2667.9 mGycm CONTRAST: CT scan of the abdomen is performed with Oral Contrast and without and with IV Contrast, patient inje cted with 100ml mL of Isovue 300. FINDINGS: LUNG BASES-: No visible nodule. No infiltrate. LIVER/GB: No calcified gallstones. No space occupying hepatic lesion. Biliary tree is of normal ca liber. PANCREAS: No inflammation. No distinct mass. SPLEEN: No splenic enlargement. No lesion seen. ADRENALS: Right adrenal mass is essentially unchanged compared to a prior CT of the chest dated 018 and currently measures 4.6 x 4.2 cm and contains small internal foci of fat REFLECT adenoma. KIDNEYS/BLADDER: No hydronephrosis. No nephrolithiasis. No distinct renal mass. Urinary bladder g rossly unremarkable. BOWEL: Normal appendix. Normal bowel caliber. No inflammation. GENITAL ORGANS: No gross abnormality. LYMPH NODES: No greater than 1cm abdominal or pelvic lymph nodes are appreciated. AORTA: No significant abnormality. OSSEOUS STRUCTURES: No significant abnormality is seen. OTHER: No significant additional abnormality is seen. IMPRESSION: 1. Right adrenal mass is unchanged dating back to 2017 and likely reflects adenoma.
== END | disposition home or self-care (01) ==
LOC: RADCTMAIN 14:42
PROVIDERS: ATTEND Family Medicine
DX: E27.8 Other specified disorders of adrenal gland (principal); R19.09 Other intra-abdominal and pelvic swelling, mass and lump
CPT/HCPCS: 74170; Q9967

== ENCOUNTER 2024-01-24 13:18 | Emergency (ER) | payer MEDICARE ==
--- NOTE | 2024-01-24 15:30 | CT ---
EXAMINATION TYPE: CT brain cspine wo con CT DLP: 1570 mGycm, Automated exposure control for dose reduction was used. DATE OF EXAM: 01/24/2024 3:07 PM COMPARISON: 10/01/2017. CLINICAL INDICATION:Female, 78 years old with history of fall; pain after fall TECHNIQUE: Brain: Multiple axial CT images of the brain were obtained without IV contrast. Cspine: Axial CT images from the skull base to the inferior aspect of T2 we obtained without intraven ous contrast. Coronal and sagittal reformatted images were also reviewed. . FINDINGS: Brain: Extra-axial spaces: No abnormal extra-axial fluid collections. Ventricular system: Within normal limits Cerebral parenchyma: No acute intraparenchymal hemorrhage or mass effect. The estrada-white junction is well differentiated. Cerebellum: The graphic limits evaluation of the cerebellum. No obvious acute process. Mass effect: No evidence of midline shift. Intracranial vasculature: Atherosclerotic calcifications of the intracranial vessels. Soft tissues right forehead scalp hematoma. Small laceration also be present. Calvarium/osseous structures: No depressed skull fracture. Paranasal sinuses and mastoid air cells: Clear. Visualized orbits: Bilateral aphakia globes are intact. Cervical spine: Fracture: None. Osseous structures: Multilevel degenerative disc disease changes with endplate spurring and disc oste ophyte complex's. Vertebral alignment: Within normal limits. Spinal canal/Neural Foramina: No evidence of significant spinal canal narrowing. No evidence for sign ificant neural foraminal stenosis. Neck soft tissues: Prevertebral soft tissues are within normal limits. Other: The airway is patent. The lung apices are clear. IMPRESSION: 1. No acute intracranial process. 2. Nonspecific white matter changes, likely secondary to chronic small vessel ischemic disease. 3. No evidence of cervical spine fracture. 4. Mild multilevel degenerative disc disease. 5. Right scalp hematoma and laceration.
--- NOTE | 2024-01-24 16:38 | XR ---
EXAMINATION TYPE: XR hand complete RT DATE OF EXAM: 01/24/2024 4:16 PM CLINICAL INDICATION:Female, 78 years old with history of fall; [facility] COMPARISON: None TECHNIQUE: XR hand complete RT Frontal, lateral and oblique views were obtained. FINDINGS: Normal alignment of the visualized joints. No acute osseous pathology is identified. No e vidence of soft tissue swelling. Multifocal degeneration changes with joint space narrowing and osteo phyte formation. IMPRESSION: 1. No acute osseous pathology. 2. Multifocal osteoarthrosis throughout the joints of the hand.
--- NOTE | 2024-01-24 16:45 | XR ---
EXAMINATION TYPE: XR forearm RT DATE OF EXAM: 01/24/2024 4:25 PM CLINICAL INDICATION:Female, 78 years old with history of fall; [facility] COMPARISON: None TECHNIQUE: XR forearm RT; forearm was examined in AP and lateral projections. FINDINGS: No acute osseous pathology, soft tissue swelling or joint dislocations are seen. IMPRESSION: No evidence of acute fracture.
--- NOTE | 2024-01-24 16:55 | ED ---
General Adult HPI - General Chief complaint: Fall Stated complaint: Fall Time Seen by Provider: 01/24/24 13:53 Source: patient, EMS, RN notes reviewed Mode of arrival: EMS Limitations: no limitations - History of Present Illness Initial comments: 78 year old female presents to the emergency department for evaluation of fall with head injury and facial laceration. Patient states that she was attempting to use the bathroom when she tripped over her pants causing her to fall forward. She states that she hit her head on the concrete wall in the bathroom. She denies loss of consciousness, blood thinners. She also is reporting pain to her right wrist. Denies any other injury. Unsure of last tetanus vaccine. - Related Data Home Medications Medication Instructions Recorded Confirmed Pravastatin Sodium 40 mg PO HS 02/17/16 07/17/20 metFORMIN HCL [Glucophage] 1,000 mg PO BID 02/17/16 07/17/20 Cholecalciferol [Vitamin D3 (25 1 tab PO HS 02/12/17 07/17/20 Mcg = 1000 Iu)] Losartan [Cozaar] 50 mg PO DAILY 02/12/17 07/17/20 Folic Acid 1 mg PO DAILY 10/01/17 07/17/20 Pantoprazole [Protonix] 40 mg PO BID 10/01/17 07/17/20 Canagliflozin [Invokana] 100 mg PO DAILY 07/17/20 07/17/20 Metoprolol Tartrate [Lopressor] 12.5 mg PO BID 07/17/20 07/17/20 Pyridostigmine [Mestinon] 30 mg PO QID 07/17/20 07/17/20 Previous Rx's Medication Instructions Recorded amLODIPine [Norvasc] 5 mg PO BID #60 tab 02/21/16 Acetaminophen Tab [Tylenol] 650 mg PO Q6HR PRN tab 07/18/20 Cephalexin [Keflex] 500 mg PO Q6HR 1 Days #20 cap 07/18/20 Naproxen 250 mg PO BID #10 tablet 07/18/20 Allergies Allergy/AdvReac Type Severity Reaction Status Date / Time codeine Allergy Dyspnea, N Verified 01/24/24 14:42 & V latex Allergy Rash/Hives Verified 01/24/24 14:42 Review of Systems ROS Statement: Those systems with pertinent positive or pertinent negative responses have been documented in the HPI. ROS Other: All systems not noted in ROS Statement are negative. 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/some urinary frequency, L eye bleed behind retina-vision has improved, NIDDM type II, neuropathy bilateral legs/feet, myasthenia gravis, R adrenal gland mass being monitored, 2010 sepsis, osteoporosis History of Any Multi-Drug Resistant Organisms: None Reported Past Surgical History: Joint Replacement, Orthopedic Surgery, Tonsillectomy, Tubal Ligation Additional Past Surgical History / Comment(s): L total knee arthroplasty, L knee I&D with polyethylene exchange d/t infection, R foot tendon surgery as a 4 year old child d/t polio, cyst removed from neck, lesion removed from lip, cyst removed from vaginal wall, mole removed from back, L breast biopsy/has clip, R breast I&D, EGD, colonoscopies, Past Anesthesia/Blood Transfusion Reactions: No Reported Reaction Past Psychological History: No Psychological Hx Reported Smoking Status: Former smoker Past Alcohol Use History: None Reported Past Drug Use History: None Reported - Past Family History Father Family Medical History: Coronary Artery Disease (CAD) Mother Family Medical History: Cancer, Coronary Artery Disease (CAD), Respiratory Disorder Additional Family Medical History / Comment(s): Uterine cancer Sister(s) Family Medical History: Cancer, Renal Disease Additional Family Medical History / Comment(s): Bone cancer, General Exam Limitations: no limitations General appearance: alert, in no apparent distress Head exam: Present: other (Right-sided forehead hematoma with overlying abrasion, right-sided cheek laceration) Eye exam: Present: PERRL, EOMI, periorbital swelling (Bilateral periorbital swelling and ecchymosis), other (no visible hyphema, no proptosis, EOMI, visual acuity 20/30 bilateral). Absent: scleral icterus, conjunctival injection ENT exam: Present: normal exam, mucous membranes moist, TM's normal bilaterally, normal external ear exam Neck exam: Present: normal inspection, full ROM. Absent: tenderness, meningismus, lymphadenopathy Respiratory exam: Present: normal lung sounds bilaterally. Absent: respiratory distress, wheezes, rales, rhonchi, stridor Cardiovascular Exam: Present: regular rate, normal rhythm, normal heart sounds. Absent: systolic murmur, diastolic murmur, rubs, gallop, clicks GI/Abdominal exam: Present: soft. Absent: distended, tenderness, guarding, rebound, rigid Extremities exam: Present: full ROM, tenderness (right forearm and hand, no anatomical snuffbox tenderness), normal capillary refill. Absent: pedal edema, joint swelling, calf tenderness Back exam: Present: normal inspection Neurological exam: Present: alert, oriented X3, CN II-XII intact Psychiatric exam: Present: normal affect, normal mood Skin exam: Present: warm, dry. Absent: intact, normal color Course Vital Signs 01/24/24 01/24/24 01/24/24 13:22 13:27 15:52 Temperature Pulse Rate 76 72 87 Respiratory 18 18 18 Rate Blood Pressure 134/66 134/66 142/59 O2 Sat by Pulse 98 98 97 Oximetry 01/24/24 01/24/24 17:08 18:05 Temperature 98.2 F Pulse Rate 78 76 Respiratory 16 18 Rate Blood Pressure 122/88 124/76 O2 Sat by Pulse 98 97 Oximetry Procedures - Laceration Laceration #1 Consent Obtained: verbal consent Indication: laceration Site: face Size (cm): 3 Description: linear Depth: simple, single layer Anesthetic Used: lidocaine 1%, with epi Anesthesia Technique: local infiltration Pre-repair: wound explored, irrigated extensively Type of Sutures: other Size of Sutures: 6-0 Number of Sutures: 3 Technique: simple, interrupted Patient Tolerated Procedure: well, no complications Medical Decision Making - Medical Decision Making Was pt. sent in by a medical professional or institution (, PA, INFORMATION ASSURANCE OFFICER, urgent care, hospital, or group home...) When possible be specific @ -No Did you speak to anyone other than the patient for history (EMS, parent, family, police, friend...)? What history was obtained from this source @ -No Did you review nursing and triage notes (agree or disagree)? Why? @ -I reviewed and agree with nursing and triage notes Were old charts reviewed (outside hosp., previous admission, EMS record, old EKG, old radiological studies, urgent care reports/EKG's, group home records)? Report findings @ -No old charts were reviewed Differential Diagnosis (chest pain, altered mental status, abdominal pain women, abdominal pain men, vaginal bleeding, weakness, fever, dyspnea, syncope, headache, dizziness, GI bleed, back pain, seizure, CVA, palpatations, mental hea lth, musculoskeletal)? @ -Fall, head injury, laceration, abrasion, scalp hematoma, intracranial hemorrhage, this list is not all inclusive EKG interpreted by me (3pts min.). @ -None X-rays interpreted by me (1pt min.). @ -X-ray of the right forearm and hand show no evidence of acute fracture or dislocation CT interpreted by me (1pt min.). @ -CT brain and C-spine shows no acute intracranial process, no acute C-spine fracture or traumatic malalignment U/S interpreted by me (1pt. min.). @ -None done What testing was considered but not performed or refused? (CT, X-rays, U/S, labs)? Why? @ -None What meds were considered but not given or refused? Why? @ -None Did you discuss the management of the patient with other professionals (professionals i.e. , PA, INFORMATION ASSURANCE OFFICER, lab, RT, psych nurse, social media designer, police detention attendant, teacher, casino surveillance officer, case technician)? Give summary @ -No Was smoking cessation discussed for >3mins.? @ -No Was critical care preformed (if so, how long)? @ -No Were there social determinants of health that impacted care today? How? (Homelessness, low income, unemployed, alcoholism, drug addiction, transportation, low edu. Level, literacy, decrease access to med. care, intermediate, rehab)? @ -No Was there de-escalation of care discussed even if they declined (Discuss DNR or withdrawal of care, Hospice)? DNR status @ -No What co-morbidities impacted this encounter? (DM, HTN, Smoking, COPD, CAD, Cancer, CVA, ARF, Chemo, Hep., AIDS, mental health diagnosis, sleep apnea, morbid obesity)? @ -None Was patient admitted / discharged? Hospital course, mention meds given and rou te, prescriptions, significant lab abnormalities, going to OR and other pertinent info. @ -Discharge. Patient presented to the emergency department for evaluation of trip and fall with head injury. CT brain and C-spine was obtained revealing no acute intracranial process or C-spine fracture. XR of right forearm and hand reveal no acute process. Patient has a right-sided forehead hematoma with an overlying abrasion. She also has a laceration to the right cheek which was irrigated and repaired. Dressing was applied. Patient was updated on tetanus vaccination. She was advised on suture removal time and acute wound care. She is understanding agreeable plan. Patient stable at time of discharge. Case discussed with Dr. Cordero. Undiagnosed new problem with uncertain prognosis? @ -No Drug Therapy requiring intensive monitoring for toxicity (Heparin, Nitro, Insulin, Cardizem)? @ -No Were any procedures done? @ -Laceration repair Diagnosis/symptom? @ -Fall, head injury, laceration Acute, or Chronic, or Acute on Chronic? @ -Acute Uncomplicated (without systemic symptoms) or Complicated (systemic symptoms)? @ -Uncomplicated Side effects of treatment? @ -No Exacerbation, Progression, or Severe Exacerbation? @ -No Poses a threat to life or bodily function? How? (Chest pain, [place], [place], pneumonia, PE, COPD, DKA, ARF, appy, cholecystitis, CVA, Diverticulitis, Homicidal, Suicidal, threat to staff... and all critical care pts) @ -No Disposition Clinical Impression: Fall, Laceration Disposition: HOME SELF-CARE Condition: Stable Instructions (If sedation given, give patient instructions): Care For Your Stitches (ED) Additional Instructions: Please have stitches removed in around 5 days. Return to the emergency department for new or worsening symptoms. Is patient prescribed a controlled substance at d/c from ED?: No Referrals: Benito Cadena MD [Primary Care Provider] - 1-2 days
[2024-01-24] MEDS: LIDOCAINE 1%-EPI 1:100,000 20 ML VIAL SQ STA (17:06)
[2024-01-24] MEDS: DIPH,PERTUS(ACELL)TETVAC-LF 0.5 ML VIAL IM ONE (17:48)
[2024-01-24 18:07] VITALS: BP 124/76; PULSE 76; RESP 18; TEMP 98.2
== END 2024-01-24 18:07 | disposition home or self-care (01) ==
LOC: EC 13:18
DX: S01.01XA Laceration without foreign body of scalp, initial encounter (principal); Z87.891 Personal history of nicotine dependence; Z91.040 Latex allergy status; Z88.5 Allergy status to narcotic agent; Z86.73 Personal history of transient ischemic attack (TIA), and cerebral infarction without residual deficits; Z90.89 Acquired absence of other organs; Z23 Encounter for immunization; W01.0XXA Fall on same level from slipping, tripping and stumbling without subsequent striking against object, initial encounter
CPT/HCPCS: 12013; 70450; 72125; 90471; 90715; 99284

== ENCOUNTER → 2024-08-31 | Outpatient (CLI) | payer MEDICARE ==
--- NOTE | 2024-08-31 17:12 | MM ---
Reason for Exam: Screening (asymptomatic). Last mammogram was performed 1 year(s) and 3 month(s) ago. Patient History: Menarche at age 12. First Full-Term at age 19. Postmenopausal. 06/02/2006, Benign Cyst Aspiration on the left side. 03/01/1999, Benign Stereotactic Core Biopsy on the left side. Paternal aunt had breast cancer, age 67. Maternal aunt (mayur) had breast cancer, age 56. Sister had breast cancer, age 53. Mother had breast cancer, age 91. Risk Values: Esther 5 year model risk: 10.6%. NCI Lifetime model risk: 19.1%. Prior Study Comparison: 06/07/2018 Bilateral Screening Mammogram, [facility]. 03/11/2022 Bilateral MG 3D screening mammo w/cad, [facility]. 06/04/2023 Bilateral MG 3D screening mammo w/cad, [facility]. Tissue Density: There are scattered areas of fibroglandular density. Findings: Analyzed By CAD. Bilateral bilateral vascular calcification. Tiny low axillary tail lymph node on the right. Microclip left breast from prior biopsy. There is no suspicious group of microcalcifications or new suspicious mass in either breast. Overall Assessment: Benign, BI-RAD 2 Management: Screening Mammogram of both breasts in 1 year. SEE NOTE BELOW IN REGARDS TO THE PATIENT'S INCREASED 5 YEAR ESTHER SCORE. Patient should continue monthly self-breast exams. A clinical breast exam by your physician is recommended on an annual basis. This exam should not preclude additional follow-up of suspicious palpable abnormalities. Note on Esther scores and lifetime risk: 1. A Esther score greater than 3% is considered moderate risk. If this is the case, consider specialist referral to assess eligibility for a risk reducing agent. 2. If overall lifetime risk for the development of breast cancer is 20% or higher, the patient may qualify for future screening with alternating mammogram and breast MRI. [facility], , 08/31/2024 5:09 PM. Electronically signed and approved by: Rachelle Yancey M.D. Radiologist
== END | disposition home or self-care (01) ==
LOC: RADMAMWWP 10:13
PROVIDERS: ATTEND Family Medicine
DX: Z12.31 Encounter for screening mammogram for malignant neoplasm of breast (principal); R92.323 Mammographic fibroglandular density, bilateral breasts; Z78.0 Asymptomatic menopausal state; Z80.3 Family history of malignant neoplasm of breast
CPT/HCPCS: 77063; 77067